=== PATIENT | male | born 1940 | race Caucasian/White ===

== ENCOUNTER → 2016-07-10 | Outpatient (CLI) | payer BC ==
[~2016-07-10] MED LIST: ATOR10TA88 PO; LOSA1TAB38 PO; PRED1SUS3 OPL
[2016-07-10 11:43] LABS: ALT/SGPT 37 U/L (12-78); AST/SGOT 23 U/L (15-37); BLOOD UREA NITROGEN 19 mg/dl (7-18); BUN/CREATININE RATIO 15.9 (10-20); CARBON DIOXIDE 27 mmol/L (21-32); CHLORIDE 110 mmol/L (98-107); GLUCOSE 86 mg/dl (70-99); POTASSIUM 4.2 mmol/L (3.5-5.1); SODIUM 144 mmol/L (136-145); TRIGLYCERIDES 104 mg/dl (0-150); VERY LOW DENSITY LIPOPROT CALC 21 mg/dl
[2016-07-10 11:45] LABS: ALB/GLOB RATIO 1.2 (0.9-2); ALKALINE PHOSPHATASE 80 U/L (45-117); CHOLESTEROL 168 mg/dl (0-200); CHOLESTEROL/HDL RATIO 2.8; HDL CHOLESTEROL 61 mg/dl; LDL CHOLESTEROL CALCULATED 86 mg/dl
== END | disposition home or self-care (01) ==
LOC: C.LABBC 08:28
PROVIDERS: ATTEND Internal Medicine Geriatric Medicine
DX: I10 Essential (primary) hypertension (principal); E78.5 Hyperlipidemia, unspecified

== ENCOUNTER → 2017-03-07 | Outpatient (CLI) | payer BC ==
--- NOTE | 2017-03-07 08:44 | DIAGNOSTIC IMAGING REPORT ---
CHEST 2 VIEWS ROUTINE HISTORY: 76 years-old Male R05 [id number] acute cough for 5 months. COMPARISON: Radiograph 10/17/2011 TECHNIQUE: Frontal and lateral views of the chest FINDINGS: Cardiomediastinal and hilar silhouettes are within normal limits. There is atherosclerosis of the aorta. No pneumothorax, pleural effusion, focal airspace consolidation or overt pulmonary edema. There is mild convex right curvature of the midthoracic spine. Multilevel degenerative changes of the spine are noted. IMPRESSION: No acute cardiopulmonary process. The above report was generated using voice recognition software. It may contain grammatical, syntax or spelling errors. Electronically signed by: Jose Omalley M.D. 03/07/2017 8:43 AM Dictated Date/Time: 03/07/2017 8:40 AM
[2017-03-07 11:32] LABS: ALT/SGPT 31 U/L (12-78); AST/SGOT 21 U/L (15-37); BLOOD UREA NITROGEN 21 mg/dl (7-18); BUN/CREATININE RATIO 18.4 (10-20); CARBON DIOXIDE 27 mmol/L (21-32); CHLORIDE 110 mmol/L (98-107); CREATININE 1.17 mg/dl (0.60-1.40); GLUCOSE 106 mg/dl (70-99); POTASSIUM 4.4 mmol/L (3.5-5.1); SODIUM 142 mmol/L (136-145)
[2017-03-07 11:43] LABS: ALKALINE PHOSPHATASE 78 U/L (45-117); CHOLESTEROL 158 mg/dl (0-200); CHOLESTEROL/HDL RATIO 2.5; HDL CHOLESTEROL 63 mg/dl; LDL CHOLESTEROL CALCULATED 82 mg/dl; TRIGLYCERIDES 66 mg/dl (0-150); VERY LOW DENSITY LIPOPROT CALC 13 mg/dl
== END | disposition home or self-care (01) ==
LOC: C.RADBC 08:09
PROVIDERS: ATTEND Internal Medicine Geriatric Medicine
DX: I10 Essential (primary) hypertension (principal); E78.5 Hyperlipidemia, unspecified; R05 Cough

== ENCOUNTER → 2017-03-28 | Outpatient (CLI) | payer BC ==
[~2017-03-28] MED LIST changes: +ATOR10TA82 PO; -ATOR10TA88 PO
[2017-04-01 01:29] LABS: LYME DNA PCR CSF OR SYNOVIAL Not detected (Not Detected); LYME DNA SOURCE Synovial Fluid
== END | disposition home or self-care (01) ==
LOC: C.LABSPEC 13:41
PROVIDERS: ATTEND Physician Assistant Medical
DX: M70.50 Other bursitis of knee, unspecified knee (principal)

== ENCOUNTER → 2017-04-30 | Outpatient (CLI) | payer BC | END | disposition home or self-care (01) | LOC: C.LABSPEC 13:15 | PROVIDERS: ATTEND Physician Assistant Medical | DX: M70.50 Other bursitis of knee, unspecified knee (principal) ==

== ENCOUNTER → 2017-09-20 | Outpatient (CLI) | payer BC ==
--- NOTE | 2017-09-20 13:55 | DIAGNOSTIC IMAGING REPORT ---
L VENOUS DOPP LOWER EXT UNILAT CLINICAL HISTORY: M79.89 Left leg swelling pain. Edema. TECHNIQUE: Venous Doppler COMPARISON STUDY: None FINDINGS: Study is negative for deep venous thrombosis. All major deep venous structures are intact. Soft tissues of the left calf demonstrate a linear 11 x 2 cm complex fluid tissue collection suggestive of hematoma. IMPRESSION: 1. No evidence for deep venous thrombosis. 2. Linear hematoma of the proximal to mid calf. The above report was generated using voice recognition software. It may contain grammatical, syntax or spelling errors. Electronically signed by: Gera Murcia M.D. 09/20/2017 1:53 PM Dictated Date/Time: 09/20/2017 1:51 PM
== END | disposition home or self-care (01) ==
LOC: C.ULTRBC 13:14
PROVIDERS: ATTEND Family Medicine Adult Medicine
DX: M79.89 Other specified soft tissue disorders (principal); S80.12XA Contusion of left lower leg, initial encounter; X58.XXXA Exposure to other specified factors, initial encounter

== ENCOUNTER 2023-12-30 18:15 | Inpatient (IN) ==
--- NOTE | 2023-12-30 18:37 | Emergency Department Note ---
Impression & Plan COVID, Left lower lobe pneumonia, Hypoxia ED Provider Note Name: BO WILCOX Age: 83 Sex: Male Arrives Via: Walk-In Informant: Patient and his ED Provider: Thierno Sainz MD Chief Complaint: Illness Impression: As per impressions above Medical Decision Making: Pleasant 83-year-old gentleman with about 5 days of symptoms. Upper respiratory symptoms primarily cough associated with congestion, shortness of breath, weakness, fatigue. Patient is hypoxic and febrile on arrival. He is not hypotensive. Laboratory workup is mostly unremarkable without elevated lactate or significantly elevated procalcitonin. Chest x-ray with left lower lobe pneumonia. In the setting of pneumonia hypoxia fever blood culture was obtained. Single blood culture set obtained due to national shortage. Patient was given 1 L normal saline bolus as he does appear a bit dehydrated on initial examination. Remained with good blood pressure throughout he is not septic shock. His COVID test is positive. Further fluid resuscitation is not indicated at this time secondary to no hypotension/lactic acidosis, concern for questionable congestion on chest x-ray as well as his COVID-positive status. Patient was given some cefepime and azithromycin for presumed secondary pneumonia. He is not a high risk aspiration patient. He was given Decadron for hypoxia and a COVID-positive patient. No concerns for PE or dissection nor ACS at this time. Triage/Nursing Notes reviewed by Me Differential:Pneumonia, pneumothorax, COPD, CHF, infections, cardiac ischemia, pulmonary embolism, musculoskeletal, gastrointestinal, as well as other pathologies. Vital Signs: reviewed and remarkable for febrile, hypoxia Interventions: Decadron 10mg IV, NSS bolus 1 L IV, Cefepime 2gm IV, Azithromycin 500mg IV Labs:ED labs Reviewed by me and remarkable for + covid Imagin view chest x-ray as per my interpretation reveals a left lower lobe infiltrate EKG:As per my interpretation. Indication weakness and shortness of breath. Normal sinus rhythm at 91 bpm with a QTc of 460. There is no ectopy nor ischemia. There are no previous EKGs for comparison. Cardiac/Tele Monitoring: Cardiac Monitoring: An Order was placed for continuous cardiac monitoring. The monitor shows a rate of 90 with a normal sinus rhythm. Consults:Dr Lozano of [facility] Hospitalist -I discussed the case with him and they will evaluate him for hospitalization. Plan: Disposition:Hospitalization. Condition: Good History of Present Illness: 83-year-old male arrives for evaluation of illness. Patient notes he start developing cough cold type symptoms about 5 days ago. Rapidly progressed over few days to shortness of breath, congestion, weakness, fatigue. Notes he has not had been having any chest pain or shortness of breath with exertion specifically other than just feeling overall fatigued and short of breath even at rest. Due to continued worsening arrives to the ER for further evaluation. Notes a cough without productive sputum. Denies any leg swelling, chest pain, palpitations, abdominal pain, urinary symptoms, diarrhea, headaches, sore throat, other concerning signs or symptoms. Patient's been taking Mucinex without any improvement. Denies any history of respiratory issues, hospitalizations for infections, pneumonia. No known sick contacts Past Medical History: Dyslipidemia, hypertension, enlarged prostate Home Medications: Losartan, hydrochlorothiazide, atorvastatin Allergies: IV dye, lisinopril Vitals:Blood Pressure: 128/70, Pulse 91, RR 26, T 38.3C, O2 88% on RA Physical Exam: GENERAL: Patient is unwell appearing and in mild distress. Warm to touch RESPIRATORY: Mild dyspnea/tachypnea mildly junky lung sounds throughout without wheeze appreciated. CARDIOVASCULAR: Regular rate and rhythm.No murmur appreciated. GASTROINTESTINAL: Abdomen soft, non-tender, no peritonitis. EXTREMITIES: Normal motion all extremities, no cyanosis, no edema. NEUROLOGIC: Alert and oriented. No focal neurologic deficits appreciated SKIN: No rash, no jaundice, no diaphoresis. 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 Dyslipidemia Hypertension History of Mohs micrographic surgery for skin cancer Surgical History History of eyelid surgery History of colonoscopy History of cataract surgery Family History Mother Hypertension Stroke Father Prostate cancer Denies family history of Ovarian cancer Diabetes Myocardial infarction Breast cancer Lung cancer Colorectal cancer Social History Smoking Status: Never smoker Second Hand Exposure: No; Do You Dip or Chew Tobacco: No; Hx Alcohol Use: No Hx Substance Use: No Preferred Language: Chinese Communication Ability: Effective Visual Impairment: Limited Hearing Ability: Normal marital status: Current Living Situation: Spouse current occupational status: retired How many Children do You have: 0 Feels Safe at Home: Yes Childhood Exposure to Second-Hand Smoke: No Diet: regular caffeine: Yes Dental Care, Regularly: Yes Physical Activity Frequency: Daily Seatbelt Use: always Sunscreen Use: Yes Do you think of yourself as: straight/heterosexual Assistive Devices: Glasses Allergies Allergies Allergy/AdvReac Type Severity Reaction Status Date / Time Iodinated Contrast Media Allergy Unknown HIVES--CONTRAST Verified 04/30/23 08:43 DYE lisinopril Allergy Unknown Verified 04/30/23 08:43 Home Meds Home Medications Medication Instructions Recorded Confirmed acetaminophen 500 mg tablet 1,000 mg PO Q6H PRN Pain 05/24/20 12/30/23 (Tylenol Extra Strength) Previous Rx's Medication Instructions Recorded hydrochlorothiazide 12.5 mg tablet 12.5 mg PO DAILY #90 tabs 04/30/23 losartan 100 mg tablet (Cozaar) 100 mg PO DAILY #90 tabs 06/03/23 atorvastatin 10 mg tablet (Lipitor) 10 mg PO DAILY #90 tabs 10/02/23 Results & Data (ED) Vital Signs Vital Signs - 24 hr 12/30/23 18:16 12/30/23 18:37 12/30/23 18:45 Temperature 37.1 C 38.3 C H Temperature Source Oral Oral Pulse Rate 97 H 84 Pulse Rate [Left Apical] 91 H Respiratory Rate 22 26 H Respiratory Effort / Characteristics Non-Labored Spontaneous Spontaneous Short of Breath Respiratory Depth Normal Normal Respiratory Pattern Regular Regular Blood Pressure 142/73 H Blood Pressure [Right Arm] 128/70 Blood Pressure Mean 96 Blood Pressure Mean [Right Arm] 89 Pulse Oximetry 88 L 94 Oxygen Delivery Method Room Air Nasal Cannula Oxygen Flow Rate 3 Sepsis Recent Fever Within 48 Hours Yes Sepsis New/Unexplained Change in Mental Status N/A Sepsis Action Taken by Nursing No Action Required 12/30/23 19:00 12/30/23 19:03 12/30/23 19:30 Temperature Temperature Source Pulse Rate 83 76 Pulse Rate [Left Apical] Respiratory Rate 26 H 23 Respiratory Effort / Characteristics Respiratory Depth Respiratory Pattern Blood Pressure 124/69 126/67 Blood Pressure [Right Arm] Blood Pressure Mean 82 86 Blood Pressure Mean [Right Arm] Pulse Oximetry 96 95 Oxygen Delivery Method Nasal Cannula Nasal Cannula Oxygen Flow Rate 3 3 Sepsis Recent Fever Within 48 Hours Sepsis New/Unexplained Change in Mental Status Sepsis Action Taken by Nursing 12/30/23 19:54 12/30/23 20:00 12/30/23 20:05 Temperature 37.4 C Temperature Source Oral Pulse Rate 73 Pulse Rate [Left Apical] Respiratory Rate 26 H Respiratory Effort / Characteristics Respiratory Depth Respiratory Pattern Blood Pressure 136/72 Blood Pressure [Right Arm] Blood Pressure Mean 97 Blood Pressure Mean [Right Arm] Pulse Oximetry 97 Oxygen Delivery Method Nasal Cannula Oxygen Flow Rate 3 Sepsis Recent Fever Within 48 Hours Sepsis New/Unexplained Change in Mental Status Sepsis Action Taken by Nursing 12/30/23 20:11 12/30/23 20:20 12/30/23 20:26 Temperature Temperature Source Pulse Rate 71 81 74 Pulse Rate [Left Apical] Respiratory Rate 22 25 H 23 Respiratory Effort / Characteristics Respiratory Depth Respiratory Pattern Blood Pressure Blood Pressure [Right Arm] Blood Pressure Mean Blood Pressure Mean [Right Arm] Pulse Oximetry 97 96 95 Oxygen Delivery Method Nasal Cannula Nasal Cannula Nasal Cannula Oxygen Flow Rate 3 3 3 Sepsis Recent Fever Within 48 Hours Sepsis New/Unexplained Change in Mental Status Sepsis Action Taken by Nursing 12/30/23 21:00 12/30/23 21:11 12/30/23 21:20 Temperature Temperature Source Pulse Rate 74 74 Pulse Rate [Left Apical] Respiratory Rate 22 26 H Respiratory Effort / Characteristics Respiratory Depth Respiratory Pattern Blood Pressure 132/78 Blood Pressure [Right Arm] Blood Pressure Mean 88 Blood Pressure Mean [Right Arm] Pulse Oximetry 93 93 Oxygen Delivery Method Nasal Cannula Nasal Cannula Oxygen Flow Rate 3 3 Sepsis Recent Fever Within 48 Hours Sepsis New/Unexplained Change in Mental Status Sepsis Action Taken by Nursing Laboratory Data 12/30/23 18:50 12/30/23 18:50 Lab Results 12/30/23 12/30/23 12/30/23 Range/Units 18:41 18:50 19:46 WBC 9.33 (4.8-10.8) K/ul RBC 3.84 L (4.70-6.10) M/uL Hgb 12.2 L (14.0-18.0) g/dl Hct 35.3 L (42.0-52.0) % MCV 91.9 (80.0-100.0) fL MCH 31.8 (25.0-34.0) pg MCHC 34.6 (32.0-36.0) g/dL RDW Std Deviation 42.0 (36.4-46.3) fL RDW Coeff of [place] 12.5 (11.5-14.5) % Plt Count 198 (130-400) K/uL MPV 8.8 L (9.4-12.4) fL Immature Gran % (Auto) 0.3 % Neut % (Auto) 86.8 % Lymph % (Auto) 4.0 % [place] % (Auto) 8.6 % Eos % (Auto) 0.1 % Baso % (Auto) 0.2 % Neut # (Auto) 8.10 H (1.40-6.50) K/uL Lymph # (Auto) 0.37 L (1.20-3.40) K/uL [place] # (Auto) 0.80 H (0.11-0.59) K/uL Eos # (Auto) 0.01 (0.00-0.50) K/uL Baso # (Auto) 0.02 (0.00-0.20) K/uL Immature Gran # (Auto) 0.03 (0.01-0.20) K/uL Sodium 133 L (136-145) mmol/L Potassium 3.8 (3.5-5.1) mmol/L Chloride 100 (98-107) mmol/L Carbon Dioxide 24 (21-32) mmol/L Anion Gap 9 (3-11) BUN 20 (6-23) mg/dl Creatinine 1.26 (0.6-1.4) mg/dl Est Cr Clr Drug Dosing 44.6 ml/min Est GFR ( Amer) 60.3 ml/min Est GFR (Non-Af Amer) 52.0 ml/min BUN/Creatinine Ratio 15.9 (10-20) Glucose 134 H (70-99(Fasting)) mg/dl Lactate 0.8 (0.4-2.0) mmol/L Calcium 8.9 (8.6-10.3) mg/dl Magnesium 1.8 (1.7-2.4) mg/dl Total Bilirubin 0.6 (0.2-1.0) mg/dl Direct Bilirubin TNP AST 29 (13-39) U/L ALT 20 (7-52) U/L Alkaline Phosphatase 52 (34-104) U/L Troponin I High Sens 7.9 (0-20) pg/ml Total Protein 6.6 (6.0-8.3) gm/dl Albumin 3.6 (3.4-5.0) gm/dl Procalcitonin Cancelled 0.25 Urine Color Urine Appearance (Clear) Urine pH (4.5-7.5) Ur Specific [place] (1.000-1.030) Urine Protein (Negative) Urine Glucose (UA) (Negative) Urine Ketones (Negative) Urine Blood (Negative) Urine Nitrite (Negative) Urine Bilirubin (Negative) Urine Urobilinogen (Negative) Ur Leukocyte Esterase (Negative) Urine WBC (Auto) (0-5) /hpf Urine RBC (Auto) (0-2) /hpf U Hyaline Cast (Auto) (0-2) /lpf U Epithel Cells (Auto) (0-2) /hpf Urine Bacteria (Auto) (None Seen) SARS-CoV-2 (PCR) POSITIVE (Negative) Influenza Type A (PCR) Negative (Neg) Influenza Type B (PCR) Negative (Neg) RSV (RT-PCR) Negative (Neg) 12/30/23 Range/Units 20:45 WBC (4.8-10.8) K/ul RBC (4.70-6.10) M/uL Hgb (14.0-18.0) g/dl Hct (42.0-52.0) % MCV (80.0-100.0) fL MCH (25.0-34.0) pg MCHC (32.0-36.0) g/dL RDW Std Deviation (36.4-46.3) fL RDW Coeff of [place] (11.5-14.5) % Plt Count (130-400) K/uL MPV (9.4-12.4) fL Immature Gran % (Auto) % Neut % (Auto) % Lymph % (Auto) % [place] % (Auto) % Eos % (Auto) % Baso % (Auto) % Neut # (Auto) (1.40-6.50) K/uL Lymph # (Auto) (1.20-3.40) K/uL [place] # (Auto) (0.11-0.59) K/uL Eos # (Auto) (0.00-0.50) K/uL Baso # (Auto) (0.00-0.20) K/uL Immature Gran # (Auto) (0.01-0.20) K/uL Sodium (136-145) mmol/L Potassium (3.5-5.1) mmol/L Chloride (98-107) mmol/L Carbon Dioxide (21-32) mmol/L Anion Gap (3-11) BUN (6-23) mg/dl Creatinine (0.6-1.4) mg/dl Est Cr Clr Drug Dosing ml/min Est GFR ( Amer) ml/min Est GFR (Non-Af Amer) ml/min BUN/Creatinine Ratio (10-20) Glucose (70-99(Fasting)) mg/dl Lactate (0.4-2.0) mmol/L Calcium (8.6-10.3) mg/dl Magnesium (1.7-2.4) mg/dl Total Bilirubin (0.2-1.0) mg/dl Direct Bilirubin AST (13-39) U/L ALT (7-52) U/L Alkaline Phosphatase (34-104) U/L Troponin I High Sens (0-20) pg/ml Total Protein (6.0-8.3) gm/dl Albumin (3.4-5.0) gm/dl Procalcitonin Urine Color Yellow Urine Appearance Cloudy A (Clear) Urine pH 5.5 (4.5-7.5) Ur Specific [place] 1.017 (1.000-1.030) Urine Protein 2+ H (Negative) Urine Glucose (UA) Negative (Negative) Urine Ketones Trace H (Negative) Urine Blood 1+ H (Negative) Urine Nitrite Negative (Negative) Urine Bilirubin Negative (Negative) Urine Urobilinogen Negative (Negative) Ur Leukocyte Esterase Negative (Negative) Urine WBC (Auto) 0-5 (0-5) /hpf Urine RBC (Auto) 0-2 (0-2) /hpf U Hyaline Cast (Auto) >20 H (0-2) /lpf U Epithel Cells (Auto) 0-2 (0-2) /hpf Urine Bacteria (Auto) None Seen (None Seen) SARS-CoV-2 (PCR) (Negative) Influenza Type A (PCR) (Neg) Influenza Type B (PCR) (Neg) RSV (RT-PCR) (Neg) Administered Medications Discontinued Medications Dexamethasone Sodium Phosphate (DexamethasonePf 10 Mg/Ml Vial) 10 mg IV NOW ONE Stop: 12/30/23 20:06 Last Admin: 12/30/23 20:40 Dose: 10 mg Documented By: UMANG Sodium Chloride (Nss) 1,000 mls @ 999 mls/hr IV .Q1H1M TAMARA Stop: 12/30/23 19:45 Last Infusion: 12/30/23 20:50 Dose: Infused Documented By: [facility] Admin: 12/30/23 18:57 Dose: 999 mls/hr Documented By: UMANG Acetaminophen (Ofirmev) 1,000 mg in 100 mls @ 400 mls/hr IV NOW STA Stop: 12/30/23 18:51 Last Infusion: 12/30/23 19:57 Dose: Infused Documented By: [facility] Admin: 12/30/23 18:57 Dose: 400 mls/hr Documented By: MALVIN Cefepime HCl (Maxipime) 2,000 mg in 20 mls @ 5 mls/min IV NOW STA; Protocol Stop: 12/30/23 19:45 Last Admin: 12/30/23 19:53 Dose: 5 mls/min Documented By: UMANG Azithromycin 500 mg/ Dextrose 255 mls @ 127.5 mls/hr IV NOW STA Stop: 12/30/23 21:41 Last Admin: 12/30/23 20:40 Dose: 127.5 mls/hr Documented By: [facility] Discharge Plan Visit Data Chief Complaint: Illness Stated Complaint: SOB, COUGHING, FEVER ED Provider: Thierno Sainz Discharge Problem: COVID, Left lower lobe pneumonia, Hypoxia Patient Disposition: Admitted As Inpatient Discharge Instructions Interventions: ED Discharge Assessment Last Done: 12/30/23 21:44 Forms Stand Alone Forms: My [facility] Prescriptions Prescriptions: No Action losartan [Cozaar] 100 mg tablet 100 mg PO DAILY Qty: 90 3RF atorvastatin [Lipitor] 10 mg tablet 10 mg PO DAILY Qty: 90 3RF hydrochlorothiazide 12.5 mg tablet 12.5 mg PO DAILY Qty: 90 3RF acetaminophen [Tylenol Extra Strength] 500 mg Tablet 1,000 mg PO Q6H PRN (Reason: Pain) Referrals Referrals: Jacob Godfrey DO [Primary Care Provider] - Discharge Problem: Left lower lobe pneumonia Qualifiers: Pneumonia type: due to unspecified organism Qualified Code(s): J18.9 - Pneumonia, unspecified organism
[2023-12-30] MEDS: ACETAMINOPHEN 1,000 MG/100 ML VIAL IV STA (18:57)
[2023-12-30] MEDS: SODIUM CHLORIDE 0.9% 1,000 ML IV SCH (18:57)
[2023-12-30 19:09] LABS: Basophils # (auto) 0.02 K/uL (0.00-0.20); Basophils % (auto) 0.2 %; Eosinophils # (auto) 0.01 K/uL (0.00-0.50); Eosinophils % (auto) 0.1 %; Hematocrit (blood only) 35.3 % (42.0-52.0); Hemoglobin 12.2 g/dl (14.0-18.0); Immature Granulocytes # (auto) 0.03 K/uL (0.01-0.20); Immature Granulocytes % (auto) 0.3 %; Lymphocytes # (auto) 0.37 K/uL (1.20-3.40); Mean Corpuscular Hemoglobin 31.8 pg (25.0-34.0); Mean Corpuscular Hgb Conc 34.6 g/dL (32.0-36.0); Mean Corpuscular Volume 91.9 fL (80.0-100.0); Mean Platelet Volume 8.8 fL (9.4-12.4); Monocytes % (auto) 8.6 %; Neutrophils % (auto) 86.8 %; Platelet Count 198 K/uL (130-400); RDW Coefficient of Variation 12.5 % (11.5-14.5); Red Blood Count 3.84 M/uL (4.70-6.10); White Blood Count 9.33 K/ul (4.8-10.8)
[2023-12-30 19:33] LABS: Alanine Aminotransferase 20 U/L (7-52); Albumin Level 3.6 gm/dl (3.4-5.0); Alkaline Phosphatase 52 U/L (34-104); Anion Gap 9 (3-11); Aspartate Aminotransferase 29 U/L (13-39); BUN Creatinine Ratio 15.9 (10-20); Bilirubin,Total 0.6 mg/dl (0.2-1.0); Blood Urea Nitrogen 20 mg/dl (6-23); Calcium 8.9 mg/dl (8.6-10.3); Carbon Dioxide 24 mmol/L (21-32); Chloride 100 mmol/L (98-107); Creatinine Clr Calc Pharmacy 44.6 ml/min; Est GFR (African American) 60.3 ml/min; Glucose 134 mg/dl (70-99(Fasting)); Magnesium 1.8 mg/dl (1.7-2.4); Potassium 3.8 mmol/L (3.5-5.1); Sodium 133 mmol/L (136-145); Total Protein 6.6 gm/dl (6.0-8.3)
[2023-12-30 19:40] LABS: Troponin I High Sensitivity 7.9 pg/ml (0-20)
[2023-12-30 19:46] LABS: Influenza A virus by PCR Negative (Neg); Influenza B virus by PCR Negative (Neg); RSV by PCR Negative (Neg); SARS CoV2 RNA(COVID-19) Ceph POSITIVE (Negative)
[2023-12-30] MEDS: CEFEPIME 2,000 MG/20 ML VIAL IV STA (19:53)
--- NOTE | 2023-12-30 20:11 | History & Physical Report ---
Date of Service December 30, 2023 Assessment & Plan (1) Left lower lobe pneumonia: Plan: Productive cough, SAMANIEGO, and fever x 1 week CXR on arrival revealed possible left lower lobe / lingular PNA ? Mucous plugging in the right hilar region Patient denies recent vomiting/aspiration, but does endorse significant coughing when he eats No leukocytosis; afebrile on arrival; procalcitonin WNL Azithromycin 500 mg IV q24h Continue cefepime 2000 mg IV q8h for now to cover potential ASA PNA Guaifenesin 1200 mg p.o. q12h Acetaminophen as needed for pain/fever AM CBC, BMP, mag (2) Acute hypoxic respiratory failure: Plan: Patient's SpO2 was 88% on RA on arrival Not on supplemental oxygen at baseline Supplement oxygen as needed to maintain SpO2 >94% Continuous pulse oximetry (3) COVID: Plan: Covid (+) on arrival Isolation precautions Supportive care Decadron 6 mg IV QAM Given timeline of symptoms, will defer remdesivir Incentive parameter, flutter valve (4) Hypertension: Plan: Continue losartan, HCTZ (5) Dyslipidemia: Plan: Continue atorvastatin Plan Disposition: Admit to [facility] telemetry Full code Regular diet VTE PPx: Lovenox 40 mg SQ q24h History of Present Illness Chief Complaint: SOB, productive cough Primary Care Provider: DO Ion Gonzalez is a pleasant 83-year-old male with PMH of dyslipidemia, HTN, and enlarged prostate. He presented on 12/29 for productive cough, dyspnea on exertion, and low-grade fevers x 1 week. Patient reports he is experiencing SOB with exertion, but not at rest. He is not on supple oxygen at home. He has been taking Mucinex and cough drops for his productive cough. He does have a history of COVID infection in 2019. He has had vaccination against COVID, but not boosters. Per home parameter, he has been running low-grade fevers around 99 F. He denies being around anybody sick recently, and reports he mainly only goes out when he is going to [employer], [employer], and [employer]. He denies smoking, tobacco use, and alcohol use. Patient's SpO2 was 95% on 3L NC; vitals otherwise stable at time of admission. ED course: Azithromycin 500 mg IV Cefepime 2000 mg IV Decadron 10 mg IV Acetaminophen 1000 mg IV NSS 1000 mL IV ROS: Patient endorses intermittent low-grade fevers (at 99F), SAMANIEGO, and productive cough. Patient denies chills, night-sweats, dizziness, lightheadedness, ROGERS, congestion, chest pain, SOB at rest, pleuritic CP, abdominal pain, or N/V/D. Allergies Allergy/AdvReac Type Severity Reaction Status Date / Time Iodinated Contrast Media Allergy Unknown HIVES--CONTRAST Verified 04/30/23 08:43 DYE lisinopril Allergy Unknown Verified 04/30/23 08:43 Home Medications Medication Instructions Recorded Confirmed Type acetaminophen 500 mg tablet 1,000 mg PO Q6H PRN Pain 05/24/20 12/30/23 History (Tylenol Extra Strength) hydrochlorothiazide 12.5 mg tablet 12.5 mg PO DAILY #90 tabs 04/30/23 12/30/23 Rx losartan 100 mg tablet (Cozaar) 100 mg PO DAILY #90 tabs 06/03/23 12/30/23 Rx atorvastatin 10 mg tablet (Lipitor) 10 mg PO DAILY #90 tabs 10/02/23 12/30/23 Rx Past Med/Surg History Problem List (Updated 12/30/23 @ 22:13 by Thierno Sainz MD) Hypoxia (Acute) Acute hypoxic respiratory failure COVID (Acute) Left lower lobe pneumonia (Acute) Constipation Enlarged prostate without lower urinary tract symptoms (luts) (Acute) Hypertension Dyslipidemia Medical History Diverticulosis 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 Dyslipidemia Hypertension History of Mohs micrographic surgery for skin cancer Surgical History History of eyelid surgery History of colonoscopy History of cataract surgery Family History Mother Hypertension Stroke Father Prostate cancer Denies family history of Ovarian cancer Diabetes Myocardial infarction Breast cancer Lung cancer Colorectal cancer Social History Smoking Status: Never smoker Second Hand Exposure: No; Do You Dip or Chew Tobacco: No; Hx Alcohol Use: No Hx Substance Use: No Preferred Language: French Communication Ability: Effective Visual Impairment: Limited Hearing Ability: Normal Traffic Analysis Technician Required: No Beliefs That Will Affect Care: None marital status: Current Living Situation: Spouse current occupational status: retired How many Children do You have: 0 Other Information That Helps Us Care for You: No Feels Safe at Home: Yes Safety Concerns: Feels Safe At This Time Childhood Exposure to Second-Hand Smoke: No Diet: regular caffeine: Yes Dental Care, Regularly: Yes Physical Activity Frequency: Daily Seatbelt Use: always Sunscreen Use: Yes Do you think of yourself as: straight/heterosexual Assistive Devices: Glasses Review of Systems Review of Systems: See HPI above Physical Exam Physical Exam: General: no acute distress; pleasant affect; non-toxic appearing; well- nourished; cooperative; SpO2 96% on 3L NC HEENT: normocephalic, atraumatic; no scleral icterus; PERRLAt; vision and hearing grossly intact Neck: supple; no lymphadenopathy; trachea midline Skin: warm, dry without signs of tenting; no cyanosis; no rashes, bruising, lesions, or erythema noted CV: chest wall NTP; RRR; S1/S2 normal; no murmurs/rubs/gallops; pulses intact and symmetric at radial, DP, and PT Lungs: Mild respiratory distress; symmetrical chest wall expansion; bibasilar crackles auscultated in the lower lung villanueva bilaterally; deep breaths exacerbates coughing ABD: Soft, NTP; BS present; no rebound/guarding; no distention MSK: no tics or fasciculations; no edema noted in the LEs b/l, nonerythematous Neuro: A&Ox3; normal mood and affect; fluent speech; no focal deficits; sensation grossly intact in the LEs b/l Trialed patient on room air and patient's oxygen dropped to 90% Results & Data Results & Data Vital Signs (Past 12 Hours) Vital Signs Temp Pulse Pulse Resp BP BP Pulse Ox 12/30/23 19:54 37.4 C 12/30/23 19:30 76 23 126/67 95 12/30/23 19:03 83 26 H 96 12/30/23 19:00 124/69 12/30/23 18:45 84 12/30/23 18:37 38.3 C H 91 H 26 H 128/70 94 12/30/23 18:16 37.1 C 97 H 22 142/73 H 88 L O2 Del Method O2 Flow Rate 12/30/23 19:54 12/30/23 19:30 Nasal Cannula 3 12/30/23 19:03 Nasal Cannula 3 12/30/23 19:00 12/30/23 18:45 12/30/23 18:37 Nasal Cannula 3 12/30/23 18:16 Room Air Laboratory Results Abnormal lab results 12/30/23 Range/Units 18:50 RBC 3.84 L (4.70-6.10) M/uL Hgb 12.2 L (14.0-18.0) g/dl Hct 35.3 L (42.0-52.0) % MPV 8.8 L (9.4-12.4) fL Neut # (Auto) 8.10 H (1.40-6.50) K/uL Lymph # (Auto) 0.37 L (1.20-3.40) K/uL Jefferson # (Auto) 0.80 H (0.11-0.59) K/uL Sodium 133 L (136-145) mmol/L Glucose 134 H (70-99(Fasting)) mg/dl ECG Additional Comments: EKG ordered, pending Code Status & VTE Plan Code Status Full code VTE Prophylaxis Plan VTE Prophylaxis will be ordered: Yes Supervising Physician Co-Signing Physician Notes Attending addendum: I have physically seen this patient, have supervised the MECHE's activities, and agree with the H&P unless as otherwise noted. Assessment and Plan: Acute respiratory failure with hypoxia left lower lobe pneumonia/COVID-positive- Chest x-ray with left lingular and left lower lobe pneumonia, with differential including but not limited to aspiration, community-acquired, and viral/COVID Given dexamethasone 10 mg IV in the ED, and will continue 6 mg IV every morning Azithromycin 500 mg IV every 24 hours Cefepime 2 g IV every 8 hours Guaifenesin extended release 1200 mg p.o. every 12 hours Acetaminophen 650 mg by mouth every 6 hours as needed for mild pain or fever Albuterol HFA 2 puffs every 6 hours as needed Target pulse ox 92-94% Follow serial CBC with differential, BMP and magnesium level Follow sputum Gram stain and cultureVersus MRSA swab COVID precautions Hypertension- Continue losartan Hold HCTZ PG Care Time/CCT Total # of Minutes Spent Total Time Spent with Patient: Total time spent is greater than 50% in coordination of care (as documented) at patient's floor/unit and/or counseling patient: Coding [place] [address] INT INP/OBS CARE 3/75MIN Patient Type Established Medical Decision Making High Complexity Diagnoses Left lower lobe pneumonia J18.9 Acute hypoxic respiratory failure J96.01 COVID U07.1 Hypertension I10 Dyslipidemia E78.5
[2023-12-30] MEDS: AZITHROMYCIN 500 MG in DEXTROSE 5% 250 ML IV STA (20:40)
[2023-12-30] MEDS: dexAMETHasone**PF** 10 MG/ML VIAL IV ONE (20:40)
[2023-12-30 21:29] LABS: Appearance Urine Cloudy (Clear); Bacteria Urine Automated None Seen (None Seen); Bilirubin Urine Negative (Negative); Blood Urine 1+ (Negative); Cast Urine Automated >20 /lpf (0-2); Color Urine Yellow; Epithelial Cell Urine Auto 0-2 /hpf (0-2); Glucose Urine UA Negative (Negative); Ketones Urine Trace (Negative); Leukocyte Esterase Urine Negative (Negative); Nitrite Urine Negative (Negative); Protein Urine 2+ (Negative); RBC Urine Automated 0-2 /hpf (0-2); Specific Gravity Urine 1.017 (1.000-1.030); Urobilinogen Urine Negative (Negative); WBC Urine Automated 0-5 /hpf (0-5); pH Urine 5.5 (4.5-7.5)
[2023-12-30] MEDS ORDERED: ACETAMINOPHEN 325 MG TAB PO PRN (22:29)
[2023-12-30] MEDS: guaiFENesin 600 MG TABCR PO SCH (23:07)
--- OUTSIDE RECORDS SUMMARY | 2023-12-31 05:52 | External Medical Summary | Continuity of Care Document ---
Author Name Unknown Organization [facility] [address] [id number] Care Team Providers Care Occupational Health Nurse Manager Name Role Phone Celeste Pichardo Primary Care Physician [phone] Encounter [facility] [id number] Date(s): 10/21/23 - 10/21/23 [facility] [address] [facility] [place], [place] [id number] Encounter Diagnosis History of SCC (squamous cell carcinoma) of skin(Discharge Diagnosis) - 10/21/23 Actinic keratosis(Discharge Diagnosis) - 10/21/23 Epidermoid cyst(Discharge Diagnosis) - 10/21/23 Seborrheic keratoses(Discharge Diagnosis) - 10/21/23 Encounter for follow-up examination after completed treatment for cancer (Discharge Diagnosis) - 10/21/23 Discharge Disposition: Home or Self Care Attending Physician: MD Ivory Sara B Allergies, Adverse Reactions, Alerts No Known Allergies Assessment and Plan Extracted from: Title:Dermatology Office Visit Note Author:Susy braun MD, Sara B Date:10/21/23 1.History of SCC (squamous cell carcinoma) of skin see #5 2.Actinic keratosis x10. Lesions treated with liquid nitrogen. Patient aware of possibility of infection, hypo or hyperpigmentation or scarring and did elect to proceed. They should inform me of any problems or recurrences post treatment. Care sheet given. 3.Epidermoid cyst Chronic, within normal limits, not bothering patient 4.Seborrheic keratoses Chronic, within normal limits, not bothering patient 5.Encounter for follow-up examination after completed treatment for cancer Warning signs of skin cancer were reviewed. Sun protection reviewed. Follow-up in 6 months, sooner for any changing or growing lesions or acute concerns. I also recommended monthly self skin exams Medications No Known Medications Mental Status 10/21/23 Barriers to Learning one year None evide nt Mandatory Health Literacy Documentation Yes Health Literacy Communication Barriers N ever Primary Language Romanian Problem List Condition Confirmation Course Effective Dates Status Health St atus Informant ACTINIC KERATOSIS Confirmed Active Actinic keratosis Confirmed 12/24/01 Active Benign essential HTN Confirmed Active Changing skin lesion Confirmed Active Eczema Confirmed Active Epidermoid cyst Confirmed Active Epidermal cyst Confirmed Active Encounter for follow-up examination after completed treatment for cancer Confirmed Active History of SCC (squamous cell carcinoma) of skin Confirmed Active High cholesterol Confirmed Active Inflamed seborrheic keratosis Confirmed Active Seborrheic keratoses Confirmed Active Sun-damaged skin Confirmed Active Squamous cell carcinoma of right hand Confirmed Active Squamous cell carcinoma of skin of chest Confirmed Active Diagnosis Diagnosis Type Effective Dates Health Status Clinical Service Informant Epidermoid cyst Discharge Diagnosis 10/21/23 History of SCC (squamous cell carcinoma) of skin Discharge Diagnosis 10/21/23 Encounter for follow-up examination after completed treatment for cancer Discharge Diagnosis 10/21/23 Actinic keratosis Discharge Diagnosis 10/21/23 Seborrheic keratoses Discharge Diagnosis 10/21/23 Procedures Procedure Date Related Diagnosis Body Site Status Shave biopsy and cauterization of skin 11/16/21 Completed Curettage and cauterization of skin lesion 1 08/16/21 Completed Electrodesiccation with curettage 2 01/12/19 Completed Shave biopsy and cauterization of skin 12/31/18 Completed Mohs surgery 3 08/27/18 Completed Mohs micrographic surgery 07/30/18 Completed Shave biopsy and cauterisati on of skin 4 07/02/18 Completed Shave biopsy and cauterization of skin 07/01/17 Completed Electrodesiccation with curettage 01/08/17 Completed Shave biopsy of skin 5 01/08/17 Co mpleted Shave biopsy of skin 07/11/16 Comp leted Electrodesiccation with curettage 12/06/15 Completed Shave biopsy of skin 11/24/15 Comp leted Shave biopsy and cauterizati on of skin 6 09/08/15 Completed Colonoscopy 2013 Completed excision of skin cancer C ompleted Shave biopsy Completed 1upper chest 2right dorsal hand SCC 3A- left muslim B- left cheek 4A.) Left muslim B.) Left lateral cheek C.) Right lateral cheek 5ED&C 6A) Right post neck B) Right forehead Social History Social History Type Response Smoking Status Never smoked cigaret torsten Sex Male Dermatology Outpatient Note * MD Cachorro, Agata Novak: PERFORM Event Display: Dermatology Outpt Note Authored Date: Chief Complaint skin check- no concerns History of Present Illness The patient is a pleasant 82-year-old male, I have known for a long time. Here for skin check today. Skin Ca Hx: He has a history of a moderately differentiated squamous cell in the right neck in the falltreated with Mohs, bowenoid SK treated with ED and C on the right scalp in spring, BCC removed by biopsy, right posterior neck in 2010. Also has a history of actinic keratoses and had Efudex in the winter. 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 Perineural invasion was not noted. These were all treated with Mohs in the spring. 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 Alert and oriented x3. Good mood. Skin examination completed of face, eyelids, scalp, hair, lips, ears, neck, chest, back, abdomen,upper and lower extremities bilaterally including hands, feet, fingers and toes, fingernails and toenails, pt declined buttocks and groin.Patient has significant actinic damage primarily on the face ears neck forearms and dorsal hands. His scalp is clearas he always wears a hat. No evidence of recurrent skin cancer in his scars are clear today. He has10 actinic keratoses on lateral ear rims temples cheeks and dorsal hands. He has a 1 cm freely movable subcutaneous nodule on the right upper back with a central black punctum consistent with a cyst. He has scattered seborrheic keratoses. Assessment/Plan 1.History of SCC (squamous cell carcinoma) of skin see #5 2.Actinic keratosis x10. Lesions treated with liquid nitrogen. Patient aware of possibility of infection, hypo or hyperpigmentation or scarring and did elect to proceed. They should inform me of any problemsor recurrences post treatment. Care sheet given. 3.Epidermoid cyst Chronic, within normal limits, not bothering patient 4.Seborrheic keratoses Chronic, within normal limits, not bothering patient 5.Encounter for follow-up examination after completed treatment for cancer Warning signs of skin cancer were reviewed. Sun protection reviewed. Follow-up in 6 months, sooner for any changing or growing lesions or acute concerns. 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 Procedure/Surgical History Shave biopsy and cauterization of skin| Service Date: 11/16/2021urettage and cauterization of skin lesion| Service Date: 08/16/2021Electrodesiccation with curettage| Service Date: 01/12/2019Shave biopsy and cauterization of skin| Service Date: 12/31/2018[facility] surgery| Service Date: 08/27/2018[facility] micrographic surgery| Service Date: 07/30/2018Shave biopsy and cauterisation of skin| Service Date: 07/02/2018Shave biopsy and cauterization of skin| Service Date: 07/01/2017Shave biopsy of skin| Service Date: 01/08/2017Electrodesiccation with curettage| Service Date: 01/08/2017Shave biopsy of skin| Service Date: 07/11/2016Electrodesiccation with curettage| Service Date: 12/06/2015Shave biopsy of skin| Service Date: 11/24/2015Shave biopsy and cauterization of skin| Service Date: 09/08/2015Colonoscopy| Service Date: 2013excision of skin cancerShave biopsy Allergies NKA Social History Smoking Status Never smoked cigarettes Electronic Signature on File Electronically Reviewed/Signed by: Agata Ivory MD Author Signature Dt/Tm:10/21/2023 01:34 PM Department of Dermatology [facility] Patient Care team information Care Team Personnel Name: MD Cachorro, Agata Novak Position: Physician - Derm Member Role: Lifetime Relationship Address: Address: [address] [place] [address] [address] [place] [address] [place] Name: RUDY Pichardo Allison Irene Position: Referring Member Role: Primary Care Provider Address: Address: [address] [place] [address] [place] Care Team Related Persons Name: JEREMY WILCOX Address: home [address] [place] [phone]"
--- NOTE | 2023-12-31 07:02 | XRay Report ---
XR chest 1V portable HISTORY: 83 years-old Male Sepsis COMPARISON: 11/02/2021 TECHNIQUE: AP view of the chest FINDINGS: Cardiac silhouette is mildly enlarged. Unchanged right hemidiaphragmatic elevation. Atherosclerosis o f the aorta. No pneumothorax. Small left pleural effusion. There are patchy multifocal mid to lower l irene zone prominent airspace opacities, left greater than right. Bones appear grossly intact. IMPRESSION: 1. Patchy bilateral airspace opacities, left greater than right suggestive of multifocal pneumonia. 2. Small left pleural effusion. ACT 112: Negative or not required by law. The above report was generated using voice recognition software. It may contain grammatical, syntax o r spelling errors. Electronically signed by: Andrea Omalley M.D. 12/31/2023 7:01 AM
[2023-12-31 07:13] LABS: Hematocrit (blood only) 34.5 % (42.0-52.0); Hemoglobin 12.1 g/dl (14.0-18.0); Mean Corpuscular Hemoglobin 31.9 pg (25.0-34.0); Mean Corpuscular Hgb Conc 35.1 g/dL (32.0-36.0); Mean Platelet Volume 8.9 fL (9.4-12.4); Platelet Count 190 K/uL (130-400); RDW Coefficient of Variation 12.5 % (11.5-14.5); RDW Standard Deviation 41.9 fL (36.4-46.3); Red Blood Count 3.79 M/uL (4.70-6.10); White Blood Count 5.22 K/ul (4.8-10.8)
[2023-12-31 07:27] LABS: BUN Creatinine Ratio 19.2 (10-20); Calcium 8.6 mg/dl (8.6-10.3); Creatinine Clr Calc Pharmacy 52.2 ml/min; Est GFR (African American) 76.1 ml/min; Est GFR (Non-African American) 65.6 ml/min; Potassium 4.2 mmol/L (3.5-5.1)
[2023-12-31 07:36] LABS: Basophils # (auto) 0.01 K/uL (0.00-0.20); Basophils % (auto) 0.2 %; Immature Granulocytes # (auto) 0.02 K/uL (0.01-0.20); Immature Granulocytes % (auto) 0.4 %; Lymphocytes # (auto) 0.28 K/uL (1.20-3.40); Lymphocytes % (auto) 5.4 %; Monocytes # (auto) 0.14 K/uL (0.11-0.59); Monocytes % (auto) 2.7 %; Neutrophils # (auto) 4.77 K/uL (1.40-6.50); Neutrophils % (auto) 91.3 %
[2023-12-31] MEDS: dexAMETHasone 6 MG in SYRINGE 0 ML IV SCH (07:59)
[2023-12-31] MEDS: ATORVASTATIN 10 MG TAB PO SCH (08:00)
[2023-12-31] MEDS: LOSARTAN POTASSIUM 50 MG TAB PO SCH (08:00)
[2023-12-31] MEDS: ENOXAPARIN INJ 40 MG/0.4 ML SYR SQ SCH (08:00)
[2023-12-31] MEDS: CEFEPIME 2,000 MG in SYRINGE 0 ML IV SCH (08:07)
[2023-12-31] MEDS ORDERED: hydroCHLOROthiazide 25 MG TAB PO SCH (09:00)
--- NOTE | 2023-12-31 12:52 | Electrocardiogram Report ---
Test Reason : Blood Pressure : */* mmHG Vent. Rate : 91 BPM Atrial Rate : 91 BPM P-R Int : 122 ms QRS Dur : 90 ms QT Int : 374 ms P-R-T Axes : -10 -32 65 degrees QTcB Int : 460 ms Normal sinus rhythm Left axis deviation Abnormal ECG No previous ECGs available Confirmed by Trevor Suazo ([id number]) on 12/31/2023 12:51:37 PM Referred By: REFERRED SELF Confirmed By: Trevor Suazo
--- NOTE | 2023-12-31 15:01 | Hospitalist Progress Note ---
Date of Service December 31, 2023 Assessment & Plan (1) Left lower lobe pneumonia: Plan: Multifocal pneumoniasuspect secondary bacterial overgrowth after initial viral insults. Appears to be improving, just cannot quite wean oxygen yet. Continue Zithromax, change cefepime to ceftriaxone. Anticipate ongoing improvement. Encouraged activity and incentive spirometry. (2) Acute hypoxic respiratory failure: Plan: Patient's SpO2 was 88% on RA on arrival Continue antibiotics, pulmonary toilet, supportive care. Wean oxygen as possible (3) COVID: Plan: suspect COVID was the initial phase of his illness last week, suspect what really landed him in the hospital was a secondary bacterial overgrowth pneumonia. No need for specific COVID related treatment. (4) Hypertension: Plan: Continue losartan, HCTZ, Blood pressure reasonable given the situation (5) Dyslipidemia: Plan: Continue atorvastatin Plan Disposition: stable, anticipate home once we are able to wean oxygen Full code Regular diet VTE PPx: Lovenox 40 mg SQ q24h Admission and Anticipated Discharge Date Admission Date: December 30, 2023 Subjective Feeling better overall. Still coughing some, but not really short of breath. Has not gotten up and around much. present. She notes that she helped him get changed and he seemed more or less at his baseline level of function.Updated to the best my ability and to their satisfaction. Review of Systems Review of Systems: All systems reviewed & are unremarkable except as noted in HPI & below Physical Exam Physical Exam: In general he is awake and alert pleasant no distress. 89% on room air with no dyspnea. After incentive spirometry he coughed several times, but unfortunately is still 89% on room air. Breathing unlabored no accessory muscle use good effort. Skin without rashes pallor or icterus. Neuro without focal deficits. Results & Data Results & Data Vital Signs (Past 12 Hours) Vital Signs Temp Pulse Pulse Resp BP Pulse Ox O2 Del Method 12/31/23 11:40 97.5 F L 63 17 131/67 92 Nasal Cannula 12/31/23 08:00 97.0 F L 57 L 18 131/70 93 Nasal Cannula 12/31/23 07:30 54 L O2 Flow Rate 12/31/23 11:40 3 12/31/23 08:00 3 12/31/23 07:30 PG Care Time/CCT Total # of Minutes Spent Total Time Spent with Patient: Total time spent is greater than 50% in coordination of care (as documented) at patient's floor/unit and/or counseling patient: Coding Level of Care Code 00820 SUB INP/OBS CARE MIN Diagnoses Left lower lobe pneumonia J18.9 Pneumonia type: due to unspecified organism Acute hypoxic respiratory failure J96.01 COVID U07.1 Hypertension I10 Dyslipidemia E78.5 (1) Left lower lobe pneumonia Pneumonia type: due to unspecified organism Qualified Code(s): J18.9 - Pneumonia, unspecified organism
[2023-12-31] MEDS: AZITHROMYCIN 500 MG in DEXTROSE 5% 250 ML IV SCH (19:53)
[2024-01-01 06:29] LABS: Basophils # (auto) 0.04 K/uL (0.00-0.20); Basophils % (auto) 0.3 %; Hematocrit (blood only) 32.8 % (42.0-52.0); Hemoglobin 11.3 g/dl (14.0-18.0); Immature Granulocytes # (auto) 0.07 K/uL (0.01-0.20); Immature Granulocytes % (auto) 0.5 %; Lymphocytes # (auto) 0.47 K/uL (1.20-3.40); Lymphocytes % (auto) 3.2 %; Mean Corpuscular Hemoglobin 31.7 pg (25.0-34.0); Mean Corpuscular Hgb Conc 34.5 g/dL (32.0-36.0); Mean Corpuscular Volume 91.9 fL (80.0-100.0); Mean Platelet Volume 8.9 fL (9.4-12.4); Monocytes % (auto) 6.9 %; Neutrophils # (auto) 12.91 K/uL (1.40-6.50); Neutrophils % (auto) 89.1 %; Platelet Count 223 K/uL (130-400); RDW Coefficient of Variation 12.7 % (11.5-14.5); RDW Standard Deviation 42.5 fL (36.4-46.3); Red Blood Count 3.57 M/uL (4.70-6.10); White Blood Count 14.49 K/ul (4.8-10.8)
[2024-01-01 06:46] LABS: BUN Creatinine Ratio 19.2 (10-20); Calcium 8.2 mg/dl (8.6-10.3); Creatinine Clr Calc Pharmacy 45.2 ml/min; Est GFR (Non-African American) 55.2 ml/min; Potassium 3.7 mmol/L (3.5-5.1)
[2024-01-01] MEDS: cefTRIAXone SODIUM 2,000 MG/50 ML BAG IV SCH (10:00)
[2024-01-01] MEDS: ALBUT/IPRATROP 3MG/0.5MG NEB 3 ML VIAL NEB SCH (13:29)
--- NOTE | 2024-01-01 15:48 | Hospitalist Progress Note ---
Date of Service January 01, 2024 Assessment & Plan (1) Left lower lobe pneumonia: Plan: Multifocal pneumoniasuspect secondary bacterial overgrowth after initial viral insults. Feels okay, cough worse, unable to wean oxygensuspect mucous plugging as he is going through catarrhal phase of this pneumonia. Increase pulmonary toilet (encouraged incentive spirometry and flutter valve, add nebs), continue current antibiotics and supportive care. (2) Acute hypoxic respiratory failure: Plan: Patient's SpO2 was 88% on RA on arrival Continue antibiotics, pulmonary toilet, supportive care. Wean oxygen as possibleAs above (3) COVID: Plan: suspect COVID was the initial phase of his illness last week, suspect what really landed him in the hospital was a secondary bacterial overgrowth pneumonia. No need for specific COVID related treatment. off steroids (4) Hypertension: Plan: Continue losartan, HCTZ, Blood pressure reasonable given the situation (5) Dyslipidemia: Plan: Continue atorvastatin Plan Disposition: stable, anticipate home once we are able to wean oxygen Full code Regular diet VTE PPx: Lovenox 40 mg SQ q24h Admission and Anticipated Discharge Date Admission Date: December 30, 2023 Subjective Coughing a lot more/cough is a lot worse, but does not really feel more shortness of breath. We have been unable to wean oxygen. No other new complaints. Review of Systems Review of Systems: All systems reviewed & are unremarkable except as noted in HPI & below Physical Exam Physical Exam: In general he is awake and alert pleasant no distress. HEENT normocephalic atraumatic mucous membranes moist. Breathing unlabored no accessory muscle use good effort. Lungs are generally clear throughout, scattered rhonchi with intermittent coughing. Skin shows no rashes no pallor or icterus. Neuro without focal deficits. Results & Data Results & Data Vital Signs (Past 12 Hours) Vital Signs Temp Pulse Pulse Resp BP Pulse Ox O2 Del Method 01/01/24 13:30 102 H 23 91 Nasal Cannula 01/01/24 13:10 98.1 F 77 17 132/65 90 Nasal Cannula 01/01/24 11:33 Nasal Cannula 01/01/24 08:00 81 O2 Flow Rate 01/01/24 13:30 3 01/01/24 13:10 3 01/01/24 11:33 3 01/01/24 08:00 PG Care Time/CCT Total # of Minutes Spent Total Time Spent with Patient: Total time spent is greater than 50% in coordination of care (as documented) at patient's floor/unit and/or counseling patient: Coding Level of Care Code 68220 SUB INP/OBS CARE 350MIN Diagnoses Left lower lobe pneumonia J18.9 Pneumonia type: due to unspecified organism Acute hypoxic respiratory failure J96.01 COVID U07.1 Hypertension I10 Dyslipidemia E78.5 (1) Left lower lobe pneumonia Pneumonia type: due to unspecified organism Qualified Code(s): J18.9 - Pneumonia, unspecified organism
[2024-01-01] MEDS: ALBUT/IPRATROP 3MG/0.5MG NEB 3 ML VIAL NEB STA (16:11)
[2024-01-02 07:13] LABS: Hematocrit (blood only) 35.6 % (42.0-52.0); Hemoglobin 11.7 g/dl (14.0-18.0); Mean Corpuscular Hemoglobin 31.1 pg (25.0-34.0); Mean Corpuscular Hgb Conc 32.9 g/dL (32.0-36.0); Mean Corpuscular Volume 94.7 fL (80.0-100.0); Mean Platelet Volume 8.9 fL (9.4-12.4); Platelet Count 236 K/uL (130-400); RDW Coefficient of Variation 13.1 % (11.5-14.5); RDW Standard Deviation 45.1 fL (36.4-46.3); Red Blood Count 3.76 M/uL (4.70-6.10); White Blood Count 12.21 K/ul (4.8-10.8)
[2024-01-02 07:39] LABS: Basophils # (auto) 0.03 K/uL (0.00-0.20); Basophils % (auto) 0.2 %; Eosinophils # (auto) 0.05 K/uL (0.00-0.50); Eosinophils % (auto) 0.4 %; Immature Granulocytes # (auto) 0.11 K/uL (0.01-0.20); Immature Granulocytes % (auto) 0.9 %; Lymphocytes # (auto) 0.36 K/uL (1.20-3.40); Lymphocytes % (auto) 2.9 %; Monocytes # (auto) 0.66 K/uL (0.11-0.59); Monocytes % (auto) 5.4 %; Neutrophils % (auto) 90.2 %
[2024-01-02 07:41] LABS: BUN Creatinine Ratio 16.2 (10-20); Calcium 8.4 mg/dl (8.6-10.3); Creatinine Clr Calc Pharmacy 46.3 ml/min; Est GFR (Non-African American) 56.9 ml/min; Potassium 3.8 mmol/L (3.5-5.1)
--- NOTE | 2024-01-02 09:03 | CT Scan Report ---
CT OF THE CHEST WITHOUT IV CONTRAST CLINICAL HISTORY: Progressive hypoxia. COMPARISON STUDY: Chest radiograph December 30, 2023. CT DOSE: 303.99 mGy.cm TECHNIQUE: Axial images of the chest were obtained without IV contrast. Images were reviewed in the axial, sagittal, and coronal planes. IV contrast was not administered for this examination. Automat ed exposure control was utilized for the study. A dose lowering technique was utilized adhering to t he principles of ALARA. FINDINGS: Mildly enlarged mediastinal lymph nodes are likely reactive. Index AP window lymph node on image 80 of 213 measures 1.4 x 1 cm. The heart is mildly enlarged and there is mild dilatation of th e central pulmonary arteries. There is moderate coronary artery calcification. No pericardial effusio n is present. There is a small hiatal hernia. There is no pneumothorax or pleural effusion. The centr al airways are patent. Extensive ground glass opacities with interlobular septal thickening throughou t the lungs is noted. There are small developing subpleural areas of consolidation. No cavitation. No a 1.9 cm lateral segment hepatic cyst is incidentally noted. Visualized portions of the upper abdome n are unremarkable. IMPRESSION: 1. Extensive alveolar opacities throughout the lungs suggestive of multifocal pneumonia. A viral etio logy is favored however superimposed bacterial pneumonia could be present. No central obstructing mas s. No cavitation. No pleural effusions. 2. Mild cardiomegaly and moderate coronary artery calcification. 3. Mildly enlarged mediastinal lymph nodes, likely reactive. ACT 112: Negative or not required by law. Electronically signed by: Ramin Da Silva M.D. 01/02/2024 9:01 AM
[2024-01-02] MEDS: DEXAMETHASONE SOD INJ 4 MG/ML VIAL IV STA (10:08)
[2024-01-02] MEDS ORDERED: DEXAMETHASONE SOD INJ 4 MG/ML VIAL IV SCH (10:15)
[2024-01-02 10:41] LABS: C Reactive Protein 16.95 mg/dl (0-0.5)
[2024-01-02] MEDS: FUROSEMIDE 40 MG/4 ML VIAL IV ONE (11:23)
[2024-01-02] MEDS: dexAMETHasone 6 MG in SYRINGE 0 ML IV SCH (11:24)
--- NOTE | 2024-01-02 13:35 | Hospitalist Progress Note ---
Date of Service January 01, 2024 Assessment & Plan (1) Left lower lobe pneumonia: Plan: - Multifocal pneumoniasuspect secondary bacterial overgrowth after initial viral insults - Patient presentation likely 2/2 COVID pneumonia impression - Will continue abx, but SOB and cough likely due to inflammation and fluid build up, with component of mucous plugging - Restarted Decadron 6mg IV and Lasix 40mg IV for pulmonary congestion - patient improving - Continue flutter valve and incentive spirometer (2) Acute hypoxic respiratory failure: Plan: - Patient's SpO2 was 88% on RA on arrival - Patient O2 requirement increased to 15L overnight at 89-90% SpO2 - Improved to 93% on 5L with Lasix, Decadron, Abx - Continue pulmonary toilet, supportive care. Wean oxygen as possible (3) COVID: Plan: - Pneumonia likely more viral in etiology based off signs and symptoms - No need for specific COVID related treatment - Condition improving (4) Hypertension: Plan: Continue losartan, HCTZ, Blood pressure reasonable given the situation (5) Dyslipidemia: Plan: Continue atorvastatin Plan Disposition: stable, anticipate home once we are able to wean oxygen Full code Regular diet VTE PPx: Lovenox 40 mg SQ q24h Admission and Anticipated Discharge Date Admission Date: December 30, 2023 Supervising Physician Co-Signing Physician Notes I personally examined the patient and verified all [place] points of history and exam, discussed case, and agree with decision making with Dr Smith A bit more short of breath, oxygen requirements yesica fairly significantly through the night. Discussed findings, CT findings, ongoing plans with both patient and . Vitals noted, in general he is fatigued and appears mildly dyspneic. HEENT normocephalic atraumatic mucous membranes moist. Lungs now diffusely crackly he is mildly tachypneic but without accessory muscle use and fortunately without conversational dyspnea. Neuro shows no focal deficits. CT scan reviewed (both report and images, as well as labs, etc.) pneumonia with hypoxic respiratory failureupon further review actually does appear to be COVID-pneumoniahis initial presentation with his history and chest x-ray were much more suggestive of having had COVID and then getting sick with a secondary bacterial overgrowth, but with his worsening oxygen requirement repeat CT scan done this morning was very consistent with a multifocal pneumonia much more consistent with viral etiology. Given the duration of illness it is exceedingly unlikely antivirals would be helpful (he was sick for a week prior to admission) resume steroids, Lasix to pull fluid, ongoing supportive care. Given the potential still for some degree of concomitant bacterial overgrowth hesitant to stop antibiotics at this time. Discussed with patient and overall situation, and how this development likely will mean a more prolonged hospitalization. DVT prophylaxisLovenox otherwise as above Subjective Ion Leary seen today resting in bed. Coughing and SOB have worsened over night. Patient's O2 requirements increased over night requiring up to 15L to keep O2 sat >90%. This morning patient was still requiring 13L and a stat chest CT showed a COVID viral multifocal pneumonia impression with subpleural consolidations. After receiving Decadron and IV Lasix patient's status has improved and is satting 93% on 5L. Patient denies fevers, chills, headache, chest pain/tightness/palpitations. Patient does endorse SOB and cough, but feels better than he did overnight. Physical Exam Physical Exam: General: patient resting comfortably, NAD, non-toxic in appearance, answers questions appropriately. Skin: warm, dry, intact HEENT: NC/AT, anicteric sclera, conjunctiva without injection, moist mucus membranes. Heart: +S1/S2, regular, no m/r/g Lungs: equal air entry bilaterally, no rales/rhonchi/wheezes Abd: +BS, soft, NT/ND Ext: warm, no clubbing/cyanosis or edema Neuro: nonfocal, speech intact, no facial droop, moving all extremities. Results & Data Results & Data Vital Signs (Past 12 Hours) Vital Signs Temp Pulse Pulse Resp BP Pulse Ox O2 Del Method 01/01/24 13:30 102 H 23 91 Nasal Cannula 01/01/24 13:10 36.7 C 77 17 132/65 90 Nasal Cannula 01/01/24 11:33 Nasal Cannula 01/01/24 08:00 81 O2 Flow Rate 01/01/24 13:30 3 01/01/24 13:10 3 01/01/24 11:33 3 01/01/24 08:00 Resident Activity Tracking Resident Involvement: Resident Care Provided Care Provided: Adult Hospital Medicine (1) Left lower lobe pneumonia Pneumonia type: due to unspecified organism Qualified Code(s): J18.9 - Pneumonia, unspecified organism (4) Hypertension Hypertension type: unspecified Qualified Code(s): I10 - Essential (primary) hypertension
--- NOTE | 2024-01-02 18:08 | Billing Data ---
Date of Service January 02, 2024 Coding Level of Care Code 96319 SUB INP/OBS CARE 3MIN
[2024-01-02] MEDS: AZITHROMYCIN 250 MG TAB PO SCH (20:14)
[2024-01-02 23:53] LABS: Base Excess ABG 1.7 mEq/L (-9-1.8); HCO3 ABG 26 mmol/L (19-24); Oxygen Saturation ABG 94.2 % (90-95); PCO2 ABG 38 mmHg (35-46); PO2 ABG 63 mmHg (80-95); pH ABG 7.44 (7.35-7.45)
[2024-01-02 23:59] LABS: Allen Test Pos (Pos)
[2024-01-03] MEDS: dexAMETHasone 6 MG in SYRINGE 0 ML IV ONE (00:37)
[2024-01-03 03:23] LABS: iSTAT Arterial Blood Gas HCO3 25 meg/L (19-24); iSTAT Arterial Blood Gas pCO2 37 mmHg (35-46); iSTAT Arterial Blood Gas pH 7.43 (7.35-7.45); iSTAT Arterial Blood Gas pO2 72 mmHg (80-95); iSTAT Carbon Dioxide 26 mmol/L (24-31); iSTAT Hematocrit 34 % (42-52); iSTAT Hemoglobin 11.6 g/dl (14.0-18.0); iSTAT Potassium 3.8 mmol/L (3.3-5.0); iSTAT Sodium 137 mmol/L (135-144)
--- NOTE | 2024-01-03 06:19 | Communication Note ---
Date of Service: January 03, 2024 Alerted by nursing ~10:30PM that pt's oxygen sats dropping to the 80s on 8L oxymask. He was turned up to 10L oxymask and still not satting over 90%. Florecita arnold evaluated pt at bedside and recommending increasing his O2 to 11L oxymask and encouraging deep breathing. Pt still dropping down to high 80s. Pt evaluated at bedside and overall appeared well- no respiratory distress. Lungs CTA with shallow breaths. ABG at that time show pH 7.44, pCO2 38, pO2 63. Pt given a dose of dexamethasone 6mg and proned which improved his oxygenation to low 90s on 5L oxymask. Alerted by nursing ~2AM that pt's oxygen sats dropped to high 70s while changing positions. He was put on 15L oxymask and satting 90%. Pt again evaluated at bedside with unchanged exam. Pt placed on nonrebreather in transition to high flow. Repeat POC ABG showed pH 7.43, pCO2 37, pO2 72. Pt placed on high flow NC (flow rate 50L/min, FiO2 100) which resulted in oxygen sats in the low 90s. Pt transferred to PCU for further monitoring. Resident Activity Tracking Resident Involvement: Resident Care Provided Care Provided: Adult Hospital Medicine
[2024-01-03] MEDS: FUROSEMIDE 40 MG/4 ML VIAL IV STA (10:08)
--- NOTE | 2024-01-03 16:20 | Hospitalist Progress Note ---
Date of Service January 03, 2024 Assessment & Plan (1) Left lower lobe pneumonia: Plan: - Multifocal pneumoniasuspect secondary bacterial overgrowth after initial viral insults - Patient presentation likely 2/2 COVID pneumonia impression - Will continue abx, but SOB and cough likely due to inflammation and fluid build up, with component of mucous plugging - Restarted Decadron 6mg IV and Lasix 40mg IV for pulmonary congestion - patient improving - Continue flutter valve and incentive spirometer (2) Acute hypoxic respiratory failure: Plan: - Patient's SpO2 was 88% on RA on arrival - Patient O2 requirement increased to 15L overnight at 89-90% SpO2 - Improved to 93% on 5L with Lasix, Decadron, Abx - Continue pulmonary toilet, supportive care. Wean oxygen as possible (3) COVID: Plan: - Pneumonia likely more viral in etiology based off signs and symptoms - No need for specific COVID related treatment - Condition improving (4) Hypertension: Plan: Continue losartan, HCTZ, Blood pressure reasonable given the situation (5) Dyslipidemia: Plan: Continue atorvastatin Plan Disposition: stable, anticipate home once we are able to wean oxygen Full code Regular diet VTE PPx: Lovenox 40 mg SQ q24h Admission and Anticipated Discharge Date Admission Date: December 30, 2023 Supervising Physician Co-Signing Physician Notes I personally examined the patient and verified all [place] points of history and exam, discussed case, and agree with decision making with Dr Smith feels ok eating ok not too sob. Vitals noted, in general he is fatigued but appears nad. HEENT normocephalic atraumatic mucous membranes moist. lungs with diffuse rales but better than yesterday good air entry no accessory muscles good effort pneumonia with hypoxic respiratory failure COVID-pneumoniacontinue diuresis as he tolerates. Continue steroids. Continue antibiotic coverage for possibility of secondary bacterial overgrowth present (especially given his timeline where he was ill and then suddenly got worse). Encouraged proningeducated on the pathophysiology/benefit. Encouraged ongoing p.o. food intake. Titrate oxygen as possible. DVT prophylaxisLovenox otherwise as above David Leary seen today resting in bed. Coughing and SOB have worsened over night. Patient's O2 requirements increased over night once again requiring up to 50L of high flow oxygen to keep O2 sat >90%. The patient was seen today and was not in distress but continues to require high levels of supplemental oxygen. The patient was briefly tachypneic satting in the 80s when he removed his oxygen to have a BM that came on suddenly, but is now on 45L of High flow nasal cannula with improved breathing. Patient denies fevers, chills, headache, chest pain/tightness/palpitations. Patient does endorse SOB and cough, but has improved from the night. Physical Exam Physical Exam: General: patient resting comfortably, NAD, non-toxic in appearance, answers questions appropriately. Skin: warm, dry, intact HEENT: NC/AT, anicteric sclera, conjunctiva without injection, moist mucus membranes. Heart: +S1/S2, regular, no m/r/g Lungs: equal air entry bilaterally, no rales/rhonchi/wheezes Abd: +BS, soft, NT/ND Ext: warm, no clubbing/cyanosis or edema Neuro: nonfocal, speech intact, no facial droop, moving all extremities. Results & Data Results & Data Vital Signs (Past 12 Hours) Vital Signs Temp Pulse Pulse Resp BP BP Pulse Ox 01/03/24 15:47 36.7 C 81 21 122/67 90 01/03/24 15:31 76 26 H 90 01/03/24 15:29 74 26 H 98 01/03/24 15:10 79 01/03/24 11:31 36.3 C L 99 H 22 98/60 L 96 01/03/24 10:28 75 22 97 01/03/24 08:00 01/03/24 08:00 01/03/24 08:00 73 01/03/24 07:47 37.1 C 88 21 121/66 91 01/03/24 07:00 83 22 93 01/03/24 05:36 36.6 C 88 18 122/64 94 01/03/24 05:01 77 18 92 01/03/24 04:30 Pulse Ox O2 Del Method O2 Del Method O2 Flow Rate O2 Flow Rate FiO2 01/03/24 15:47 High Flow Nasal Cannula 45 01/03/24 15:31 High Flow Nasal Cannula 45 80 01/03/24 15:29 High Flow Nasal Cannula 60 100 01/03/24 15:10 01/03/24 11:31 High Flow Nasal Cannula 60 01/03/24 10:28 High Flow Nasal Cannula 50 100 01/03/24 08:00 High Flow Nasal Cannula 50 98 01/03/24 08:00 99 High Flow Nasal Cannula 50 01/03/24 08:00 01/03/24 07:47 High Flow Nasal Cannula 50 01/03/24 07:00 High Flow Nasal Cannula 50 100 01/03/24 05:36 High Flow Nasal Cannula 50 100 01/03/24 05:01 High Flow Nasal Cannula 50 100 01/03/24 04:30 High Flow Nasal Cannula 50 100 Resident Activity Tracking Resident Involvement: Resident Care Provided Care Provided: Adult Hospital Medicine (1) Left lower lobe pneumonia Pneumonia type: due to unspecified organism Qualified Code(s): J18.9 - Pneumonia, unspecified organism (4) Hypertension Hypertension type: unspecified Qualified Code(s): I10 - Essential (primary) hypertension
--- NOTE | 2024-01-03 18:21 | Billing Data ---
Date of Service January 03, 2024 Coding Level of Care Code 58197 SUB INP/OBS CARE MIN
[2024-01-03] MEDS: FUROSEMIDE INJ 20 MG/2 ML VIAL IV ONE (20:07)
[2024-01-04 07:19] LABS: Hematocrit (blood only) 35.5 % (42.0-52.0); Hemoglobin 12.2 g/dl (14.0-18.0); Mean Corpuscular Hemoglobin 31.8 pg (25.0-34.0); Mean Corpuscular Hgb Conc 34.4 g/dL (32.0-36.0); Mean Corpuscular Volume 92.4 fL (80.0-100.0); Mean Platelet Volume 8.8 fL (9.4-12.4); Platelet Count 339 K/uL (130-400); RDW Coefficient of Variation 12.8 % (11.5-14.5); RDW Standard Deviation 43.1 fL (36.4-46.3); Red Blood Count 3.84 M/uL (4.70-6.10); White Blood Count 13.81 K/ul (4.8-10.8)
--- NOTE | 2024-01-04 07:21 | Hospitalist Progress Note ---
Date of Service January 04, 2024 Assessment & Plan (1) Left lower lobe pneumonia: Plan: - Multifocal pneumoniasuspect secondary bacterial overgrowth after initial viral insults - Patient presentation likely 2/2 COVID pneumonia impression - Will continue abx, but SOB and cough likely due to inflammation and fluid build up, with component of mucous plugging - Continue flutter valve and incentive spirometer - continue Decadron 6mg IV and given several doses of lasix yesterday for pulmonary congestion - patient improving, just slowly - will do another dose of lasix today, encourage pt to prone at times (2) Acute hypoxic respiratory failure: Plan: - Patient's SpO2 was 88% on RA on arrival - Patient O2 requirement increased to HFNC - Improved with Lasix, Decadron, Abx - Continue pulmonary toilet, supportive care. Wean oxygen as possible (3) COVID: Plan: - Pneumonia likely more viral in etiology based off signs and symptoms - No need for specific COVID related treatment - Condition improving, although slowly (4) Hypertension: Plan: - Blood pressure reasonable given the situation - Continue HCTZ, - hold losartan today as plan for further diuresis today (5) Dyslipidemia: Plan: - Continue atorvastatin Plan VTE PPx: Lovenox 40 mg SQ q24h Admission and Anticipated Discharge Date Admission Date: December 30, 2023 Supervising Physician Co-Signing Physician Notes I personally examined the patient and verified all [place] points of history and exam, discussed case, and agree with decision making with Dr Villalobos starting to feel better. less sob. ate reasonably well. vitals noted nad breathing unlabored no accessory muscles good effort skin no rashes no pallor or icterus neuro no focal deficits pneumonia with hypoxic respiratory failure COVID-pneumoniacontinue diuresis as he tolerates. Continue steroids. maybe starting to improve (feels better, O2 sats now more stable - still needing significant O2 requirements but not fluctuating/worsening, CRP going down) Continue antibiotic coverage for possibility of secondary bacterial overgrowth present (especially given his timeline where he was ill and then suddenly got worse). Encouraged proning againeducated on the pathophysiology/benefit. Encouraged ongoing p.o. food intake. Titrate oxygen as possible. DVT prophylaxisLovenox otherwise as above Subjective Today, pt states he is feeling okay, all things considered. He states his breathing feels maybe a smidge better and he states he knows it will take time to improve. No chest pain, no abdominal pain. No other questions or complaints at this point. He was living at home with his and fully independent with ADLs prior to this hospitalization. Review of Systems Review of Systems: Per HPI. Physical Exam Physical Exam: General:Alert and oriented, no acute distress, HEENT: Normocephalic, moist oral mucosa, Cardio: Regular rate and rhythm, Resp:Lungs clear to auscultation b/l but sounds are somewhat diminished globally Skin: Warm, pink, dry, Results & Data Results & Data Vital Signs (Past 12 Hours) Vital Signs Temp Pulse Pulse Resp BP Pulse Ox O2 Del Method 01/04/24 04:10 64 18 96 High Flow Nasal Cannula 01/04/24 03:02 37.1 C 82 20 108/62 97 High Flow Nasal Cannula 01/04/24 00:06 78 01/03/24 23:05 69 20 96 High Flow Nasal Cannula 01/03/24 22:56 37.2 C 74 20 110/56 L 98 High Flow Nasal Cannula 01/03/24 21:00 High Flow Nasal Cannula 01/03/24 19:38 75 20 97 High Flow Nasal Cannula O2 Flow Rate FiO2 01/04/24 04:10 45 80 01/04/24 03:02 01/04/24 00:06 01/03/24 23:05 45 80 01/03/24 22:56 01/03/24 21:00 45 85 01/03/24 19:38 45 80 Resident Activity Tracking Resident Involvement: Resident Care Provided Care Provided: Adult Hospital Medicine (1) Left lower lobe pneumonia Pneumonia type: due to unspecified organism Qualified Code(s): J18.9 - Pneumonia, unspecified organism (4) Hypertension Hypertension type: unspecified Qualified Code(s): I10 - Essential (primary) hypertension
[2024-01-04 07:36] LABS: Basophils # (auto) 0.02 K/uL (0.00-0.20); Basophils % (auto) 0.1 %; Immature Granulocytes # (auto) 0.09 K/uL (0.01-0.20); Immature Granulocytes % (auto) 0.7 %; Lymphocytes # (auto) 0.35 K/uL (1.20-3.40); Lymphocytes % (auto) 2.5 %; Monocytes # (auto) 0.78 K/uL (0.11-0.59); Monocytes % (auto) 5.6 %; Neutrophils # (auto) 12.57 K/uL (1.40-6.50); Neutrophils % (auto) 91.1 %; Polychromasia 1+
[2024-01-04 07:46] LABS: BUN Creatinine Ratio 27.8 (10-20); C Reactive Protein 7.48 mg/dl (0-0.5); Calcium 8.8 mg/dl (8.6-10.3); Creatinine Clr Calc Pharmacy 40.7 ml/min; Est GFR (African American) 56.5 ml/min; Est GFR (Non-African American) 48.7 ml/min; Potassium 3.7 mmol/L (3.5-5.1)
[2024-01-04] MEDS: FUROSEMIDE 40 MG/4 ML VIAL IV ONE (13:13)
--- NOTE | 2024-01-04 17:48 | Billing Data ---
Date of Service January 04, 2024 Coding Level of Care Code 11611 SUB INP/OBS CARE MIN
--- NOTE | 2024-01-05 06:47 | Hospitalist Progress Note ---
Date of Service January 05, 2024 Assessment & Plan (1) Left lower lobe pneumonia: Plan: - Multifocal pneumoniasuspect secondary bacterial overgrowth after initial viral insults - Patient presentation likely 2/2 COVID pneumonia impression - Will continue abx, but SOB and cough likely due to inflammation and fluid build up, with component of mucous plugging - Continue flutter valve and incentive spirometer - continue Decadron 6mg IV and given several doses of lasix for pulmonary congestion - patient improving, just slowly - encourage pt to prone at times - will do 20 mg IV lasix today (2) Acute hypoxic respiratory failure: Plan: - Patient's SpO2 was 88% on RA on arrival - Patient O2 requirement increased to HFNC 40 L/min at 70 FiO2 - Improved with Lasix, Decadron, Abx - Continue pulmonary toilet, supportive care. Wean oxygen as possible (3) COVID: Plan: - Pneumonia likely more viral in etiology based off signs and symptoms - No need for specific COVID related treatment - Condition improving, although slowly (4) Hypertension: Plan: - Blood pressure reasonable given the situation - Continue HCTZ, - hold losartan with softer blood pressures (5) Dyslipidemia: Plan: - Continue atorvastatin Plan VTE PPx: Lovenox 40 mg SQ q24h Admission and Anticipated Discharge Date Admission Date: December 30, 2023 Supervising Physician Co-Signing Physician Notes I personally examined the patient and verified all [place] points of history and exam, discussed case, and agree with decision making with Dr Villalobos feeling a little better, less sob. continues to eat about 50% of all meals. vitals noted nad breathing unlabored no accessory muscles good effort now on 75% O2 scattered rales but less than before skin no rashes no pallor or icterus neuro no focal deficits pneumonia with hypoxic respiratory failure COVID-pneumoniacontinue diuresis as he tolerates. Continue steroids. showing slow improvement (feels better, O2 sats now more stable - still needing significant O2 requirements but not fluctuating/worsening, maybe improving slightly, CRP going down) Continue antibiotic coverage for possibility of secondary bacterial overgrowth present (especially given his timeline where he was ill and then suddenly got worse). Encouraged ongoing p.o. food intake. Titrate oxygen as possible. DVT prophylaxisLovenox otherwise as above Subjective Today, pt states he is feeling gradually just a small bit better each day and so he notes slight improvement from yesterday. He states he proned a few times yesterday and that he feels that does seem to help, will continue to do that today. Otherwise no chest pain, no nausea, no vomiting, tolerating diet, feeling a bit stronger each day. Review of Systems Review of Systems: Per HPI. Physical Exam Physical Exam: General:Alert and oriented, no acute distress, appears more lively today HEENT: Normocephalic, moist oral mucosa, Cardio: Regular rate and rhythm, Resp:Lungs clear to auscultation b/l but sounds are somewhat diminished globally but perhaps improved somewhat from yesterday Skin: Warm, pink, dry, Results & Data Results & Data Vital Signs (Past 12 Hours) Vital Signs Temp Pulse Pulse Resp BP Pulse Ox O2 Del Method 01/05/24 03:33 69 20 95 High Flow Nasal Cannula 01/05/24 02:54 36.6 C 78 18 127/67 92 Nasal CPAP 01/04/24 23:32 36.6 C 74 18 124/69 97 Nasal CPAP 01/04/24 23:12 66 17 97 High Flow Nasal Cannula 01/04/24 22:27 63 01/04/24 21:00 High Flow Nasal Cannula 01/04/24 19:19 79 17 97 High Flow Nasal Cannula O2 Flow Rate FiO2 01/05/24 03:33 45 80 01/05/24 02:54 01/04/24 23:32 01/04/24 23:12 45 80 01/04/24 22:27 01/04/24 21:00 45 80 01/04/24 19:19 45 80 Resident Activity Tracking Resident Involvement: Resident Care Provided Care Provided: Adult Hospital Medicine (1) Left lower lobe pneumonia Pneumonia type: due to unspecified organism Qualified Code(s): J18.9 - Pneumonia, unspecified organism (4) Hypertension Hypertension type: unspecified Qualified Code(s): I10 - Essential (primary) hypertension
[2024-01-05 06:48] LABS: Basophils # (auto) 0.01 K/uL (0.00-0.20); Basophils % (auto) 0.1 %; Hematocrit (blood only) 37.9 % (42.0-52.0); Hemoglobin 12.8 g/dl (14.0-18.0); Immature Granulocytes # (auto) 0.06 K/uL (0.01-0.20); Immature Granulocytes % (auto) 0.5 %; Lymphocytes # (auto) 0.48 K/uL (1.20-3.40); Lymphocytes % (auto) 4.4 %; Mean Corpuscular Hemoglobin 31.1 pg (25.0-34.0); Mean Corpuscular Hgb Conc 33.8 g/dL (32.0-36.0); Mean Platelet Volume 8.5 fL (9.4-12.4); Monocytes # (auto) 0.98 K/uL (0.11-0.59); Neutrophils # (auto) 9.41 K/uL (1.40-6.50); Platelet Count 349 K/uL (130-400); RDW Coefficient of Variation 12.5 % (11.5-14.5); RDW Standard Deviation 41.8 fL (36.4-46.3); Red Blood Count 4.12 M/uL (4.70-6.10); White Blood Count 10.94 K/ul (4.8-10.8)
[2024-01-05 07:14] LABS: BUN Creatinine Ratio 33.1 (10-20); Creatinine Clr Calc Pharmacy 41.6 ml/min; Est GFR (African American) 58.1 ml/min; Est GFR (Non-African American) 50.1 ml/min; Potassium 4.2 mmol/L (3.5-5.1)
[2024-01-05] MEDS: FUROSEMIDE INJ 20 MG/2 ML VIAL IV ONE (16:30)
--- NOTE | 2024-01-05 16:46 | Billing Data ---
Date of Service January 05, 2024 Coding Level of Care Code 89847 SUB INP/OBS CARE MIN
--- NOTE | 2024-01-06 06:44 | Hospitalist Progress Note ---
Date of Service January 06, 2024 Assessment & Plan (1) Left lower lobe pneumonia: (2) Acute hypoxic respiratory failure: (3) COVID: (4) Hypertension: (5) Dyslipidemia: Plan (1) Left lower lobe pneumonia: - Multifocal pneumonia, suspect secondary bacterial overgrowth after initial viral insults - Patient presentation likely 2/2 COVID pneumonia impression - Will continue ceftriaxone, but SOB and cough likely due to inflammation and fluid build up, with component of mucous plugging - Continue flutter valve and incentive spirometer - continue Decadron 6mg IV - patient improving, just slowly - encourage pt to prone at times (2) Acute hypoxic respiratory failure: - Patient's SpO2 was 88% on RA on arrival - Patient O2 requirement: HFNC 40 L/min at 70 FiO2 - Improved with Lasix, Decadron, Abx - consider another dose of lasix for pulmonary congestion if patient's O2 r equirements remain high - Continue pulmonary toilet, supportive care. Wean oxygen as possible (3) COVID - Pneumonia likely more viral in etiology based off signs and symptoms - repeat procalcitonin, 0.08 - Condition improving, although slowly (4) Hypertension: - Blood pressure reasonable given the situation - Continue HCTZ, - hold losartan with softer blood pressures (5) Dyslipidemia: - Continue atorvastatin Plan Code status: Full code Disposition: Med-Surg VTE PPx: Lovenox 40 mg SQ q24h FENGI: regular diet Admission and Anticipated Discharge Date Admission Date: December 30, 2023 Supervising Physician Co-Signing Physician Notes Attending Physician Supervision Note: I independently interviewed and examined the patient and verified the [place] history and physical, reviewed labs and image studies and agree with findings and care plan noted above. COVID multifocal pneumonia with Acute respiratory failure - Afebrile. Persistently hypoxic needing high flow O2. -Checked procalcitonin 01/05 - normal. CRP down to 2 from 15 on admission. -Continue dexamethasone -Continue high flow O2 and titrate as possible. -Blood and sputum cultures negative. Has been on IV abx since admission - d/c azithromycin. Consider d/c rocephin in am. -prn lasix doses. HTN - continue HCTZ. Losartan on hold. Lovenox Subjective Today, pt states he is feeling gradually just a small bit better each day and so he notes slight improvement from yesterday. He states he proned a few times yesterday and that he feels that does seem to help, will continue to do that t sloane. Otherwise no chest pain, no N/V, tolerating diet, feeling a bit stronger each day. Patient states he's feeling better this morning and continues to feel better each day but his O2sats fall into high 70s/low 80s when he moves in bed or attempts to get up and use the restroom. When patient is on the high flow O2 he doesn't feel subjectively SOB. Review of Systems Constitutional: no fever, no chills, no body aches and no fatigue Eyes: + dry eyes and + itchy eyes; no worsenin g vision Ear, Nose, Mouth, Throat: no ear pain, no nasal congestion, no nasal discharge, no post nasal drip, no facial pain, no sinus pain/pressure and no sore throat Respiratory: + cough, + chest congestion and + dyspne a; no hemoptysis Cardiovascular: + dyspnea at rest and + orthopnea; no ed ludivina and no calf pain Gastrointestinal: no nausea, no vomiting and no diarrhea/loose stools Genitourinary: no dysuria or no urinary frequency Neurologic: no tingling and no numbness Physical Exam Constitutional: WD/WN, vitals as above Respiratory: + uses accessory muscles, + cough, able to speak in complete sentences and + tachypneic Auscultation: + crackles Cardiovascular: RRR, no murmur, no edema Gastrointestinal (Abdomen): normal bowel sounds, soft, nontender, no hepatosplenomegaly Psychiatric: A+Ox3, euthymic affect Results & Data Results & Data Vital Signs (Past 12 Hours) Vital Signs Temp Pulse Pulse Resp BP Pulse Ox O2 Del Method 01/06/24 03:56 82 18 94 High Flow Nasal Cannula 01/06/24 02:40 36.7 C 90 16 125/74 91 Nasal CPAP 01/05/24 22:55 36.8 C 83 18 120/67 91 Nasal CPAP 01/05/24 22:08 69 01/05/24 21:00 High Flow Nasal Cannula 01/05/24 20:08 36.4 C L 90 22 126/67 91 High Flow Nasal Cannula 01/05/24 19:39 81 18 89 L High Flow Nasal Cannula O2 Flow Rate FiO2 01/06/24 03:56 40 70 01/06/24 02:40 01/05/24 22:55 01/05/24 22:08 01/05/24 21:00 40 75 01/05/24 20:08 40 70 01/05/24 19:39 40 70 Resident Activity Tracking Resident Involvement: Resident Care Provided Care Provided: Adult Hospital Medicine (1) Left lower lobe pneumonia Pneumonia type: due to unspecified organism Qualified Code(s): J18.9 - Pneumonia, unspecified organism (4) Hypertension Hypertension type: unspecified Qualified Code(s): I10 - Essential (primary) hypertension
[2024-01-06 08:24] LABS: Basophils # (auto) 0.03 K/uL (0.00-0.20); Basophils % (auto) 0.3 %; Eosinophils # (auto) 0.02 K/uL (0.00-0.50); Eosinophils % (auto) 0.2 %; Hematocrit (blood only) 42.7 % (42.0-52.0); Immature Granulocytes # (auto) 0.07 K/uL (0.01-0.20); Immature Granulocytes % (auto) 0.7 %; Lymphocytes # (auto) 0.71 K/uL (1.20-3.40); Lymphocytes % (auto) 6.9 %; Mean Corpuscular Hemoglobin 31.3 pg (25.0-34.0); Mean Corpuscular Hgb Conc 32.8 g/dL (32.0-36.0); Mean Corpuscular Volume 95.3 fL (80.0-100.0); Mean Platelet Volume 8.6 fL (9.4-12.4); Monocytes # (auto) 0.82 K/uL (0.11-0.59); Neutrophils # (auto) 8.58 K/uL (1.40-6.50); Neutrophils % (auto) 83.9 %; Platelet Count 375 K/uL (130-400); RDW Coefficient of Variation 12.5 % (11.5-14.5); RDW Standard Deviation 43.6 fL (36.4-46.3); Red Blood Count 4.48 M/uL (4.70-6.10); White Blood Count 10.23 K/ul (4.8-10.8)
[2024-01-06 08:42] LABS: Base Excess ABG 6.2 mEq/L (-9-1.8); HCO3 ABG 31 mmol/L (19-24); Oxygen Saturation ABG 96.8 % (90-95); PCO2 ABG 42 mmHg (35-46); PO2 ABG 77 mmHg (80-95); pH ABG 7.47 (7.35-7.45)
[2024-01-06 08:48] LABS: Allen Test Pos (Pos)
[2024-01-06 08:48] LABS: BUN Creatinine Ratio 31.3 (10-20); Calcium 9.2 mg/dl (8.6-10.3); Creatinine Clr Calc Pharmacy 42.3 ml/min; Est GFR (African American) 59.2 ml/min; Est GFR (Non-African American) 51.1 ml/min; Potassium 3.9 mmol/L (3.5-5.1)
--- NOTE | 2024-01-06 09:30 | XRay Report ---
XR chest 1V portable HISTORY: Increased O2 demand, known PNA COMPARISON: Chest CT 01/02/2024. FINDINGS: No pneumothorax. The heart remains mildly enlarged. There are low lung volumes. No pleural effusions. Patchy bilateral airspace opacities and interstitial thickening persists. This is most pro nounced within the left lower lobe. No acute fractures. IMPRESSION: No significant change in the multifocal patchy bilateral airspace opacities likely representing a pne umonia ACT 112: Negative or not required by law. Electronically signed by: Cayden Joshi M.D. 01/06/2024 9:28 AM
[2024-01-06 11:53] LABS: C Reactive Protein 2.46 mg/dl (0-0.5)
--- NOTE | 2024-01-07 07:23 | Hospitalist Progress Note ---
Date of Service January 07, 2024 Assessment & Plan (1) Left lower lobe pneumonia: (2) Acute hypoxic respiratory failure: (3) COVID: (4) Hypertension: (5) Dyslipidemia: Plan (1) Left lower lobe pneumonia: - Multifocal pneumonia, suspect secondary bacterial overgrowth after initial viral insults - Patient presentation likely 2/2 COVID pneumonia impression - Will continue ceftriaxone, but SOB and cough likely due to inflammation and fluid build up, with component of mucous plugging - Continue flutter valve and incentive spirometer - continue Decadron 6mg IV - patient improving, just slowly - encourage pt to prone at times (2) Acute hypoxic respiratory failure: - Patient's SpO2 was 88% on RA on arrival - Patient O2 requirement: HFNC 35 L/min at 60% FiO2 (incrementally lower compared to yesterday) - Improved with Lasix, Decadron, Abx - consider another dose of Lasix for pulmonary congestion if patient's O2 requirements remain high - Continue pulmonary toilet, supportive care. Wean oxygen as possible (3) COVID - Pneumonia likely more viral in etiology based off signs and symptoms - repeat procalcitonin, 0.08 - repeat CRP, 2.5 <-- 7.5 <-- 17.00, improving throughout stay - Condition improving, although slowly - no evidence of DVT in RLE or LLE based on venous Doppler study (4) Hypertension: - Blood pressure, has been < 140/90 - Continue HCTZ - hold losartan with softer blood pressures (5) Dyslipidemia: - Continue atorvastatin Plan Code status: Full code Disposition: Med-Surg VTE PPx: Lovenox 40 mg SQ q24h FENGI: regular diet Admission and Anticipated Discharge Date Admission Date: December 30, 2023 Supervising Physician Co-Signing Physician Notes Attending Physician Supervision Note: I independently interviewed and examined the patient and verified the [place] history and physical, reviewed labs and image studies and agree with findings and care plan noted above. COVID multifocal pneumonia with Acute respiratory failure - Afebrile. Persistently hypoxic needing high flow O2. -Checked procalcitonin 8/19 - normal. CRP down to 2 from 15 on admission. -Continue dexamethasone -Continue high flow O2 and titrate as possible. -Blood and sputum cultures negative. Has been on IV abx since admission - d/c azithromycin. To d/c rocephin in am. -prn lasix doses. HTN - continue HCTZ. Losartan on hold. Lovenox Subjective Today, pt states he is feeling gradually just a small bit better each day and so he notes slight improvement from yesterday. He states he proned a few times yesterday and that he feels that does seem to help, will continue to do that today. Otherwise no palpitations, no N/V, tolerating diet, feeling a bit stronger each day. Some mild chest tightness/pressure w/ coughing, deep breathing. Patient states he's feeling better this morning and continues to feel better each day but his O2sats continue to fall into low 80s when he moves in bed or attempts to get up and use the restroom. Patient is on the high flow O2, 60% FIO2 and 35 L/min, subjectively SOB when getting moved around in his bed. Review of Systems Review of Systems: Per HPI. Constitutional: no fever, no chills, no body aches and no fatigue Eyes: + dry eyes and + itchy eyes; no worsenin g vision Ear, Nose, Mouth, Throat: no ear pain, no nasal congestion, no nasal discharge, no post nasal drip, no facial pain, no sinus pain/pressure and no sore throat Respiratory: + cough, + chest congestion and + dyspne a; no hemoptysis Cardiovascular: + dyspnea at rest and + orthopnea; no ed ludivina and no calf pain Gastrointestinal: no nausea, no vomiting and no diarrhea/loose stools Genitourinary: no dysuria or no urinary frequency Neurologic: no tingling and no numbness Physical Exam Constitutional: WD/WN, vitals as above Eyes: + conjunctival abnormality (redness/conj unctivitis of both eyes, more medially than laterally) Respiratory: + uses accessory muscles, + cough, able to speak in complete sentences and + tachypneic Auscultation: + crackles (heard in bases of both lungs) Cardiovascular: RRR, no murmur, no edema Gastrointestinal (Abdomen): normal bowel sounds, soft, nontender, no hepatosplenomegaly Psychiatric: A+Ox3, euthymic affect Results & Data Results & Data Vital Signs (Past 12 Hours) Vital Signs Temp Pulse Pulse Resp BP Pulse Ox O2 Del Method 01/07/24 07:16 74 20 High Flow Nasal Cannula 08/20/24 07:09 74 20 High Flow Nasal Cannula 01/07/24 03:32 36.5 C 80 18 124/75 93 High Flow Nasal Cannula 01/07/24 03:03 74 18 94 High Flow Nasal Cannula 01/07/24 00:09 74 18 95 High Flow Nasal Cannula 01/06/24 23:21 36.9 C 67 18 118/69 92 Nasal CPAP 01/06/24 22:00 High Flow Nasal Cannula 01/06/24 21:41 82 01/06/24 20:11 84 20 90 High Flow Nasal Cannula 01/06/24 20:11 36.8 C 81 18 126/68 91 Nasal CPAP O2 Flow Rate FiO2 01/07/24 07:16 40 65 01/07/24 07:09 40 65 01/07/24 03:32 01/07/24 03:03 40 65 01/07/24 00:09 40 65 01/06/24 23:21 01/06/24 22:00 40 65 01/06/24 21:41 01/06/24 20:11 40 65 01/06/24 20:11 Resident Activity Tracking Resident Involvement: Resident Care Provided Care Provided: Adult Hospital Medicine (1) Left lower lobe pneumonia Pneumonia type: due to unspecified organism Qualified Code(s): J18.9 - Pneumonia, unspecified organism (4) Hypertension Hypertension type: unspecified Qualified Code(s): I10 - Essential (primary) hypertension
[2024-01-07 08:29] LABS: Basophils # (auto) 0.03 K/uL (0.00-0.20); Basophils % (auto) 0.3 %; Eosinophils # (auto) 0.01 K/uL (0.00-0.50); Eosinophils % (auto) 0.1 %; Hematocrit (blood only) 40.9 % (42.0-52.0); Hemoglobin 13.8 g/dl (14.0-18.0); Immature Granulocytes # (auto) 0.09 K/uL (0.01-0.20); Immature Granulocytes % (auto) 0.9 %; Lymphocytes # (auto) 0.71 K/uL (1.20-3.40); Lymphocytes % (auto) 6.7 %; Mean Corpuscular Hemoglobin 31.4 pg (25.0-34.0); Mean Corpuscular Hgb Conc 33.7 g/dL (32.0-36.0); Mean Platelet Volume 8.6 fL (9.4-12.4); Monocytes # (auto) 0.79 K/uL (0.11-0.59); Monocytes % (auto) 7.5 %; Neutrophils # (auto) 8.92 K/uL (1.40-6.50); Neutrophils % (auto) 84.5 %; Platelet Count 357 K/uL (130-400); RDW Coefficient of Variation 12.4 % (11.5-14.5); RDW Standard Deviation 42.5 fL (36.4-46.3); White Blood Count 10.55 K/ul (4.8-10.8)
[2024-01-07 08:46] LABS: BUN Creatinine Ratio 33.3 (10-20); Calcium 9.2 mg/dl (8.6-10.3); Creatinine Clr Calc Pharmacy 50.2 ml/min; Est GFR (African American) 72.7 ml/min; Est GFR (Non-African American) 62.7 ml/min
--- NOTE | 2024-01-07 16:05 | Ultrasound Report ---
ULTRASOUND BILATERAL LOWER EXTREMITY VENOUS CLINICAL HISTORY: Covid pneumonia. COMPARISON STUDY: Left lower extremity venous ultrasound dated 09/20/2017. TECHNIQUE: Portable real-time, grayscale, and color Doppler sonography of the deep veins of the right and left lower extremity was performed from the inguinal crease to the calf. Compression and augment ation were utilized. FINDINGS: There is no sonographic evidence of deep venous thrombosis identified in the right or left lower extremity. The common femoral, superficial femoral, and popliteal veins are patent and normally compressible bilaterally. The greater saphenous vein and the profunda femoris vein at the junction w ith the common femoral vein are clear in both legs. The visualized calf veins are patent bilaterally. IMPRESSION: There is no sonographic evidence of deep venous thrombosis identified in the right or lef t lower extremity. ACT 112: Negative or not required by law. Electronically signed by: Navid Yuan M.D. 01/07/2024 4:04 PM
[2024-01-08 06:54] LABS: Basophils # (auto) 0.02 K/uL (0.00-0.20); Basophils % (auto) 0.2 %; Eosinophils # (auto) 0.11 K/uL (0.00-0.50); Eosinophils % (auto) 1.1 %; Hematocrit (blood only) 38.3 % (42.0-52.0); Hemoglobin 12.9 g/dl (14.0-18.0); Immature Granulocytes # (auto) 0.07 K/uL (0.01-0.20); Immature Granulocytes % (auto) 0.7 %; Lymphocytes # (auto) 0.65 K/uL (1.20-3.40); Lymphocytes % (auto) 6.2 %; Mean Corpuscular Hemoglobin 31.9 pg (25.0-34.0); Mean Corpuscular Hgb Conc 33.7 g/dL (32.0-36.0); Mean Corpuscular Volume 94.6 fL (80.0-100.0); Mean Platelet Volume 8.4 fL (9.4-12.4); Monocytes # (auto) 0.74 K/uL (0.11-0.59); Monocytes % (auto) 7.1 %; Neutrophils # (auto) 8.85 K/uL (1.40-6.50); Neutrophils % (auto) 84.7 %; Platelet Count 301 K/uL (130-400); RDW Coefficient of Variation 12.3 % (11.5-14.5); RDW Standard Deviation 42.9 fL (36.4-46.3); Red Blood Count 4.05 M/uL (4.70-6.10); White Blood Count 10.44 K/ul (4.8-10.8)
--- NOTE | 2024-01-08 06:58 | Hospitalist Progress Note ---
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), never smoker who presented with (1) Left lower lobe pneumonia: - Multifocal pneumonia, suspect secondary bacterial overgrowth after initial viral insults - Patient presentation likely 2/2 COVID pneumonia impression - WBC, 10.4 <-- 14.5, improved after hospital stay-day 3 - SOB and cough likely due to inflammation and fluid build up, with component of mucous plugging - Continue flutter valve and incentive spirometer; encourage patient to prone at times - Discontinued ceftriaxone after 7 day course - continue Decadron, 6mg, IV, q24 hrs (may need to extend course past 10 days); continue guaifenesin, 1200 mg, PO, q12hrs; - continue Duoneb (Albuterol/Ipratropium), 3 mL, nebulizer, QIDR (2) Acute hypoxic respiratory failure: - Patient's SpO2 was 88% on RA on arrival - Patient O2 requirement: HFNC 35 L/min at 60% FiO2 w/ SpO2, 91 (same as yesterday) - Improved with Lasix, Decadron, Abx - consider another dose of Lasix for pulmonary congestion if patient's O2 requirements remain high - Continue pulmonary toilet, supportive care; Wean oxygen as possible (3) COVID - Pneumonia likely more viral in etiology based off signs and symptoms - repeat procalcitonin, 0.08 - repeat CRP, 2.5 <-- 7.5 <-- 17.00, improving throughout stay - Condition improving, although slowly - no evidence of DVT in RLE or LLE based on venous Doppler study; on Lovenox, 40 mg, subQ, daily (4) Hypertension: - Blood pressure, has been < 140/90 - Continue HCTZ - hold losartan with softer blood pressures (5) Dyslipidemia: - Continue atorvastatin Plan Code status: Full code Disposition: Med-Surg VTE PPx: Lovenox 40 mg SQ q24h FENGI: regular diet Admission and Anticipated Discharge Date Admission Date: December 30, 2023 Supervising Physician Co-Signing Physician Notes Attending Physician Supervision Note: I independently interviewed and examined the patient and verified the [place] history and physical, reviewed labs and image studies and agree with findings and care plan noted above. COVID multifocal pneumonia with Acute respiratory failure - Afebrile. Persistently needing high flow O2. -Procalcitonin 01/05 - normal. CRP down to 2 from 15 on admission. -Continue dexamethasone -Continue high flow O2 and titrate as possible. -Blood and sputum cultures negative. Has been on IV abx since admission - Has completed a course of azithromycin and rocephin. -prn lasix doses. HTN - continue HCTZ. Losartan on hold. Lovenox Subjective Today, pt states he is feeling gradually just a small bit better each day and so he notes slight improvement from yesterday. He states he proned a few times yesterday and that he feels that does seem to help, will continue to do that today. Otherwise no palpitations, no N/V, tolerating diet, feeling a bit stronger each day. Some mild chest tightness/pressure w/ coughing, deep breathing. Patient states he's feeling better this morning and continues to feel better each day but his O2sats continue to fall into low 80s when he moves in bed or attempts to get up and use the restroom. Patient is on the high flow O2, 60% FIO2 and 35 L/min, subjectively SOB when getting moved around in his bed. Review of Systems Review of Systems: Per HPI. Constitutional: no fever, no chills, no body aches and no fatigue Eyes: + dry eyes and + itchy eyes; no worsenin g vision Ear, Nose, Mouth, Throat: no ear pain, no nasal congestion, no nasal discharge, no post nasal drip, no facial pain, no sinus pain/pressure and no sore throat Respiratory: + cough, + chest congestion and + dyspne a; no hemoptysis Cardiovascular: + dyspnea at rest and + orthopnea; no ed ludivina and no calf pain Gastrointestinal: no nausea, no vomiting and no diarrhea/loose stools Genitourinary: no dysuria or no urinary frequency Neurologic: no tingling and no numbness Physical Exam Constitutional: WD/WN, vitals as above Eyes: + conjunctival abnormality (redness/conj unctivitis of both eyes, more medially than laterally) Respiratory: + uses accessory muscles, + cough, able to speak in complete sentences and + tachypneic Auscultation: + crackles (heard in bases of both lungs) Cardiovascular: RRR, no murmur, no edema Gastrointestinal (Abdomen): normal bowel sounds, soft, nontender, no hepatosplenomegaly Psychiatric: A+Ox3, euthymic affect Results & Data Results & Data Vital Signs (Past 12 Hours) Vital Signs Temp Pulse Pulse Resp BP Pulse Ox O2 Del Method 01/08/24 03:48 61 16 94 High Flow Nasal Cannula 01/08/24 02:25 36.6 C 66 18 117/65 88 L High Flow Nasal Cannula 01/07/24 23:35 62 18 95 High Flow Nasal Cannula 01/07/24 22:07 36.6 C 72 20 118/72 90 High Flow Nasal Cannula 01/07/24 22:00 High Flow Nasal Cannula 01/07/24 21:55 72 01/07/24 19:58 36.4 C L 74 18 152/81 H 92 High Flow Nasal Cannula 01/07/24 19:39 77 18 92 High Flow Nasal Cannula O2 Flow Rate FiO2 01/08/24 03:48 35 60 01/08/24 02:25 01/07/24 23:35 35 60 01/07/24 22:07 35 60 01/07/24 22:00 35 60 01/07/24 21:55 01/07/24 19:58 01/07/24 19:39 35 60 Resident Activity Tracking Resident Involvement: Resident Care Provided Care Provided: Adult Hospital Medicine (1) Left lower lobe pneumonia Pneumonia type: due to unspecified organism Qualified Code(s): J18.9 - Pneumonia, unspecified organism (4) Hypertension Hypertension type: unspecified Qualified Code(s): I10 - Essential (primary) hypertension
[2024-01-08 07:25] LABS: BUN Creatinine Ratio 33.3 (10-20); Calcium 8.7 mg/dl (8.6-10.3); Creatinine Clr Calc Pharmacy 52.6 ml/min; Est GFR (African American) 77.9 ml/min; Est GFR (Non-African American) 67.2 ml/min; Potassium 4.2 mmol/L (3.5-5.1)
--- NOTE | 2024-01-09 06:50 | Hospitalist Progress Note ---
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), never smoker who presented with (1) Left lower lobe pneumonia: - Multifocal pneumonia, suspect secondary bacterial overgrowth after initial viral insults - Patient presentation likely 2/2 COVID pneumonia impression - WBC, 10.0 <-- 10.4 <-- 14.5, improved after hospital stay-day 3 - SOB and cough likely due to inflammation and fluid build up, with component of mucous plugging - Continue flutter valve and incentive spirometer; encourage patient to prone at times - Discontinued ceftriaxone after 7 day course - continue Decadron, 6mg, IV, q24 hrs (may need to extend course past 10 days); continue guaifenesin, 1200 mg, PO, q12hrs; - continue Duoneb (Albuterol/Ipratropium), 3 mL, nebulizer, QIDR (2) Acute hypoxic respiratory failure: - Patient's SpO2 was 88% on RA on arrival - Patient O2 requirement: HFNC 35 L/min at 60% FiO2 w/ SpO2, 91 (same as yesterday) - Improved with Lasix, Decadron, Abx - consider another dose of Lasix for pulmonary congestion if patient's O2 requirements remain high - Continue pulmonary toilet, supportive care; Wean oxygen as possible (3) COVID - Pneumonia likely more viral in etiology based off signs and symptoms - repeat procalcitonin, 0.08 - repeat CRP, 2.5 <-- 7.5 <-- 17.00, improving throughout stay - Condition improving, although slowly - no evidence of DVT in RLE or LLE based on venous Doppler study; on Lovenox, 40 mg, subQ, daily (4) Hypertension: - Blood pressure, has been < 140/90 - Continue HCTZ - hold losartan with softer blood pressures (5) Dyslipidemia: - Continue atorvastatin Plan Code status: Full code Disposition: Med-Surg VTE PPx: Lovenox 40 mg SQ q24h FENGI: regular diet Admission and Anticipated Discharge Date Admission Date: December 30, 2023 Supervising Physician Co-Signing Physician Notes Attending Physician Supervision Note: I independently interviewed and examined the patient and verified the [place] history and physical, reviewed labs and image studies and agree with findings and care plan noted above. COVID multifocal pneumonia with Acute respiratory failure - Afebrile. Persistently needing high flow O2. -Procalcitonin 01/05 - normal. CRP down to 2 from 15 on admission. -Continue dexamethasone -Continue high flow O2 and titrate as possible. -Blood and sputum cultures negative. Has been on IV abx since admission - Has completed a course of azithromycin and rocephin. -prn lasix doses. HTN - continue HCTZ. Losartan on hold. Lovenox Subjective Today, pt states he is feeling gradually just a small bit better each day and so he notes slight improvement from yesterday. He states he proned a few times yesterday and that he feels that does seem to help, will continue to do that today. Otherwise no palpitations, no N/V, tolerating diet, feeling a bit stron alejandrina each day. Some mild chest tightness/pressure w/ coughing, deep breathing. Patient states he's feeling better this morning and continues to feel better each day but his O2sats continue to fall into low 80s when he moves in bed or attempts to get up and use the restroom. Patient is on the high flow O2, 60% FIO2 and 35 L/min, subjectively SOB when getting moved around in his bed. Review of Systems Review of Systems: Per HPI. Constitutional: no fever, no chills, no body aches and no fatigue Eyes: + dry eyes and + itchy eyes; no worsenin g vision Ear, Nose, Mouth, Throat: no ear pain, no nasal congestion, no nasal discharge, no post nasal drip, no facial pain, no sinus pain/pressure and no sore throat Respiratory: + cough, + chest congestion and + dyspne a; no hemoptysis Cardiovascular: + dyspnea at rest and + orthopnea; no ed ludivina and no calf pain Gastrointestinal: no nausea, no vomiting and no diarrhea/loose stools Genitourinary: no dysuria or no urinary frequency Neurologic: no tingling and no numbness Physical Exam Constitutional: WD/WN, vitals as above Eyes: + conjunctival abnormality (redness/conj unctivitis of both eyes, more medially than laterally) Respiratory: + uses accessory muscles, + cough, able to speak in complete sentences and + tachypneic Auscultation: + crackles (heard in bases of both lungs) Cardiovascular: RRR, no murmur, no edema Gastrointestinal (Abdomen): normal bowel sounds, soft, nontender, no hepatosplenomegaly Psychiatric: A+Ox3, euthymic affect Results & Data Results & Data Vital Signs (Past 12 Hours) Vital Signs Temp Pulse Resp BP Pulse Ox O2 Del Method O2 Flow Rate 01/09/24 03:50 71 16 92 High Flow Nasal Cannula 35 01/09/24 03:17 36.6 C 72 18 118/53 L 92 High Flow Nasal Cannula 35 01/08/24 23:10 75 17 92 High Flow Nasal Cannula 35 01/08/24 22:56 36.8 C 74 18 124/63 93 High Flow Nasal Cannula 35 01/08/24 21:37 High Flow Nasal Cannula 35 01/08/24 19:24 87 18 92 High Flow Nasal Cannula 35 01/08/24 19:14 36.5 C 88 18 113/70 93 High Flow Nasal Cannula FiO2 01/09/24 03:50 60 01/09/24 03:17 01/08/24 23:10 60 01/08/24 22:56 01/08/24 21:37 60 01/08/24 19:24 60 01/08/24 19:14 Resident Activity Tracking Resident Involvement: Resident Care Provided Care Provided: Adult Hospital Medicine (1) Left lower lobe pneumonia Pneumonia type: due to unspecified organism Qualified Code(s): J18.9 - Pneumonia, unspecified organism (4) Hypertension Hypertension type: unspecified Qualified Code(s): I10 - Essential (primary) hypertension
[2024-01-09 08:05] LABS: Basophils # (auto) 0.01 K/uL (0.00-0.20); Basophils % (auto) 0.1 %; Eosinophils # (auto) 0.04 K/uL (0.00-0.50); Eosinophils % (auto) 0.4 %; Hematocrit (blood only) 36.6 % (42.0-52.0); Hemoglobin 12.5 g/dl (14.0-18.0); Immature Granulocytes # (auto) 0.08 K/uL (0.01-0.20); Immature Granulocytes % (auto) 0.8 %; Lymphocytes # (auto) 0.71 K/uL (1.20-3.40); Lymphocytes % (auto) 7.1 %; Mean Corpuscular Hemoglobin 31.9 pg (25.0-34.0); Mean Corpuscular Hgb Conc 34.2 g/dL (32.0-36.0); Mean Corpuscular Volume 93.4 fL (80.0-100.0); Mean Platelet Volume 8.5 fL (9.4-12.4); Monocytes # (auto) 0.63 K/uL (0.11-0.59); Monocytes % (auto) 6.3 %; Neutrophils # (auto) 8.52 K/uL (1.40-6.50); Neutrophils % (auto) 85.3 %; Platelet Count 324 K/uL (130-400); RDW Coefficient of Variation 12.3 % (11.5-14.5); RDW Standard Deviation 42.2 fL (36.4-46.3); Red Blood Count 3.92 M/uL (4.70-6.10); White Blood Count 9.99 K/ul (4.8-10.8)
[2024-01-09 08:42] LABS: BUN Creatinine Ratio 30.5 (10-20); Calcium 8.6 mg/dl (8.6-10.3); Creatinine Clr Calc Pharmacy 47.3 ml/min; Est GFR (African American) 75.2 ml/min; Est GFR (Non-African American) 64.9 ml/min; Potassium 4.1 mmol/L (3.5-5.1)
--- NOTE | 2024-01-10 07:27 | Hospitalist Progress Note ---
Date of Service January 10, 2024 Assessment & Plan (1) Left lower lobe pneumonia: (2) Acute hypoxic respiratory failure: (3) COVID: (4) Hypertension: (5) Dyslipidemia: Plan Patient is a 83 yo M w/ a PMHx of HTN, HLD, constipation, enlarged prostate, [place] [place] [place] never smoker who presented with the following: (1) Left lower lobe pneumonia: - Multifocal pneumonia, suspect secondary bacterial overgrowth after initial viral insults - Patient presentation likely 2/2 COVID pneumonia impression - WBC, 8.6 <-- 10.4 <-- 14.5, improved after hospital stay-day 3 - SOB and cough likely due to inflammation and fluid build up, with component of mucous plugging - Continue flutter valve and incentive spirometer; encourage patient to prone at times - Discontinued ceftriaxone after 7 day course - continue Decadron, 6mg, IV, q24 hrs (may need to extend course past 10 days); continue guaifenesin, 1200 mg, PO, q12hrs; - continue Duoneb (Albuterol/Ipratropium), 3 mL, nebulizer, QIDR (2) Acute hypoxic respiratory failure: - Patient's SpO2 was 88% on RA on arrival - Patient O2 requirement: HFNC 30 L/min at 59% FiO2 w/ SpO2, 90 (incrementally improved over yesterday) - Improved with Lasix, Decadron, Abx - consider another dose of Lasix for pulmonary congestion if patient's O2 requirements remain high - Continue pulmonary toilet, supportive care; Wean oxygen as possible (3) COVID - Pneumonia likely more viral in etiology based off signs and symptoms - repeat procalcitonin, 0.08 - repeat CRP, 2.5 <-- 7.5 <-- 17.00, improving throughout stay - Condition improving, although slowly - no evidence of DVT in RLE or LLE based on venous Doppler study; on Lovenox, 40 mg, subQ, daily (4) Hypertension: - Blood pressure, has been < 155/90 during stay - Continue HCTZ - hold losartan with softer blood pressures (5) Dyslipidemia: - Continue atorvastatin Plan Code status: Full code Disposition: Med-Surg VTE PPx: Lovenox 40 mg SQ q24h FENGI: regular diet Admission and Anticipated Discharge Date Admission Date: December 30, 2023 Supervising Physician Co-Signing Physician Notes Attending Physician Supervision Note: I independently interviewed and examined the patient and verified the solis history and physical, reviewed labs and image studies and agree with findings and care plan noted above. COVID multifocal pneumonia with Acute respiratory failure - Afebrile. Persistently needing high flow O2 - slow improvement. -Procalcitonin 01/05 - normal. CRP down to 2 from 15 on admission. -Continue dexamethasone -Continue high flow O2 and titrate as possible. -Blood and sputum cultures negative. Has been on IV abx since admission - Has completed a course of azithromycin and rocephin. -prn lasix doses. HTN - continue HCTZ. Losartan on hold. Lovenox Subjective Today, pt states he is feeling gradually just a small bit better each day and so he notes slight improvement from yesterday. He states he proned a few times yesterday and that he feels that does seem to help, will continue to do that today. Otherwise no palpitations, no N/V, tolerating diet, feeling a bit stronger each day. Some mild chest tightness/pressure w/ coughing, deep breathing. Patient states he's feeling better this morning and continues to feel better each day but his O2sats continue to fall into low 80s when he moves in bed or attempts to get up and use the restroom. Patient is on the high flow O2, 60% FIO2 and 35 L/min, subjectively SOB when getting moved around in his bed. Review of Systems Review of Systems: Per HPI. Constitutional: no fever, no chills, no body aches and no fatigue Eyes: + dry eyes and + itchy eyes; no worsenin g vision Ear, Nose, Mouth, Throat: no ear pain, no nasal congestion, no nasal discharge, no post nasal drip, no facial pain, no sinus pain/pressure and no sore throat Respiratory: + cough, + chest congestion and + dyspne a; no hemoptysis Cardiovascular: + dyspnea at rest and + orthopnea; no ed ludivina and no calf pain Gastrointestinal: no nausea, no vomiting and no diarrhea/loose stools Genitourinary: no dysuria or no urinary frequency Neurologic: no tingling and no numbness Physical Exam Constitutional: WD/WN, vitals as above Eyes: + conjunctival abnormality (redness/conj unctivitis of both eyes, more medially than laterally) Respiratory: + uses accessory muscles, + cough and ab le to speak in complete sentences Auscultation: + crackles (heard in bases of both lungs) Cardiovascular: RRR, no murmur, no edema Extremities: normal capillary refill; no calf tenderness Gastrointestinal (Abdomen): normal bowel sounds, soft, nontender, no hepatosplenomegaly Psychiatric: A+Ox3, euthymic affect Results & Data Results & Data Vital Signs (Past 12 Hours) Vital Signs Temp Pulse Pulse Resp BP Pulse Ox O2 Del Method 01/10/24 07:15 75 16 90 High Flow Nasal Cannula 01/10/24 03:30 92 High Flow Nasal Cannula 01/10/24 03:13 36.3 C L 75 18 117/67 88 L High Flow Nasal Cannula 01/10/24 00:08 77 01/09/24 23:59 81 16 89 L High Flow Nasal Cannula 01/09/24 23:09 36.8 C 81 20 121/65 90 High Flow Nasal Cannula 01/09/24 20:10 High Flow Nasal Cannula 01/09/24 19:53 89 14 91 High Flow Nasal Cannula 01/09/24 19:30 36.4 C L 92 H 22 123/85 90 High Flow Nasal Cannula O2 Flow Rate FiO2 01/10/24 07:15 30 60 01/10/24 03:30 30 60 01/10/24 03:13 01/10/24 00:08 01/09/24 23:59 20 55 01/09/24 23:09 30 55 01/09/24 20:10 30 55 01/09/24 19:53 30 55 01/09/24 19:30 30 55 Resident Activity Tracking Resident Involvement: Resident Care Provided Care Provided: Adult Hospital Medicine (1) Left lower lobe pneumonia Pneumonia type: due to unspecified organism Qualified Code(s): J18.9 - Pneumonia, unspecified organism (4) Hypertension Hypertension type: unspecified Qualified Code(s): I10 - Essential (primary) hypertension
[2024-01-10 08:12] LABS: Basophils # (auto) 0.01 K/uL (0.00-0.20); Basophils % (auto) 0.1 %; Eosinophils # (auto) 0.02 K/uL (0.00-0.50); Eosinophils % (auto) 0.2 %; Hematocrit (blood only) 33.6 % (42.0-52.0); Hemoglobin 11.7 g/dl (14.0-18.0); Immature Granulocytes # (auto) 0.08 K/uL (0.01-0.20); Immature Granulocytes % (auto) 0.9 %; Lymphocytes # (auto) 0.71 K/uL (1.20-3.40); Lymphocytes % (auto) 8.3 %; Mean Corpuscular Hemoglobin 31.9 pg (25.0-34.0); Mean Corpuscular Hgb Conc 34.8 g/dL (32.0-36.0); Mean Corpuscular Volume 91.6 fL (80.0-100.0); Mean Platelet Volume 8.7 fL (9.4-12.4); Neutrophils # (auto) 7.15 K/uL (1.40-6.50); Neutrophils % (auto) 83.5 %; Platelet Count 316 K/uL (130-400); RDW Coefficient of Variation 12.3 % (11.5-14.5); RDW Standard Deviation 41.5 fL (36.4-46.3); Red Blood Count 3.67 M/uL (4.70-6.10); White Blood Count 8.57 K/ul (4.8-10.8)
[2024-01-10 08:43] LABS: Calcium 8.4 mg/dl (8.6-10.3); Potassium 4.1 mmol/L (3.5-5.1)
[2024-01-10 08:48] LABS: BUN Creatinine Ratio 30.9 (10-20); Creatinine Clr Calc Pharmacy 45.1 ml/min; Est GFR (African American) 71.1 ml/min; Est GFR (Non-African American) 61.3 ml/min
[2024-01-11 06:39] LABS: Basophils # (auto) 0.01 K/uL (0.00-0.20); Basophils % (auto) 0.1 %; Eosinophils # (auto) 0.02 K/uL (0.00-0.50); Eosinophils % (auto) 0.2 %; Hematocrit (blood only) 32.5 % (42.0-52.0); Hemoglobin 11.1 g/dl (14.0-18.0); Immature Granulocytes # (auto) 0.11 K/uL (0.01-0.20); Immature Granulocytes % (auto) 1.1 %; Lymphocytes # (auto) 0.58 K/uL (1.20-3.40); Mean Corpuscular Hemoglobin 31.1 pg (25.0-34.0); Mean Corpuscular Hgb Conc 34.2 g/dL (32.0-36.0); Mean Platelet Volume 8.5 fL (9.4-12.4); Monocytes # (auto) 0.65 K/uL (0.11-0.59); Monocytes % (auto) 6.7 %; Neutrophils # (auto) 8.34 K/uL (1.40-6.50); Neutrophils % (auto) 85.9 %; Platelet Count 287 K/uL (130-400); RDW Coefficient of Variation 12.2 % (11.5-14.5); RDW Standard Deviation 40.6 fL (36.4-46.3); Red Blood Count 3.57 M/uL (4.70-6.10); White Blood Count 9.71 K/ul (4.8-10.8)
[2024-01-11 06:55] LABS: BUN Creatinine Ratio 30.3 (10-20); Calcium 8.3 mg/dl (8.6-10.3); Creatinine Clr Calc Pharmacy 41.7 ml/min; Est GFR (African American) 64.6 ml/min; Est GFR (Non-African American) 55.8 ml/min
--- NOTE | 2024-01-11 08:18 | Hospitalist Progress Note ---
Date of Service January 11, 2024 Assessment & Plan (1) Left lower lobe pneumonia: (2) Acute hypoxic respiratory failure: (3) COVID: (4) Hypertension: (5) Dyslipidemia: Plan Patient is a 83 yo M w/ a PMHx of HTN, HLD, constipation, enlarged prostate, [place] [facility] [place] never smoker who presented with the following: (1) Left lower lobe pneumonia: - Multifocal pneumonia, suspect secondary bacterial overgrowth after initial viral insults - Patient presentation likely 2/2 COVID pneumonia impression - WBC, 9.7 <-- 8.6 <-- 10.4 <-- 14.5, improved after hospital stay-day 3 - SOB and cough likely due to inflammation and fluid build up, with component of mucous plugging - Continue flutter valve and incentive spirometer; encourage patient to prone at times - Patient completed 7 day course of ceftriaxone - continue Decadron, 6mg, IV, q24 hrs (may need to extend course past 10 days); continue guaifenesin, 1200 mg, PO, q12hrs; - continue Duoneb (Albuterol/Ipratropium), 3 mL, nebulizer, QIDR (2) Acute hypoxic respiratory failure: - Patient's SpO2 was 88% on RA on arrival - Patient O2 requirement: NC 12 L/min, w/ SpO2, 90 (improved over yesterday) - Improved with Lasix, Decadron, Abx - consider another dose of Lasix for pulmonary congestion if patient's O2 requirements remain high - Continue pulmonary toilet, supportive care; Wean oxygen as possible (3) COVID - Pneumonia likely more viral in etiology based off signs and symptoms - repeat procalcitonin, 0.08 - repeat CRP, 2.5 <-- 7.5 <-- 17.00, improving throughout stay - Condition improving, although slowly - no evidence of DVT in RLE or LLE based on venous Doppler study; on Lovenox, 40 mg, subQ, daily (4) Hypertension: - Blood pressure, has been < 155/90 during stay - Continue HCTZ - hold losartan with softer blood pressures (5) Dyslipidemia: - Continue atorvastatin Plan Code status: Full code Disposition: Med-Surg VTE PPx: Lovenox 40 mg SQ q24h FENGI: regular diet Admission and Anticipated Discharge Date Admission Date: December 30, 2023 Supervising Physician Co-Signing Physician Notes Attending Physician Supervision Note: I independently interviewed and examined the patient and verified the solis history and physical, reviewed labs and image studies and agree with findings and care plan noted above. Feeling better and brighter. Starting to get around the room more. No new complaints. Vitals noted, in general he is awake and alert pleasant no distress. HEENT normocephalic atraumatic mucous membranes moist. Breathing unlabored no accessory muscle use still on 12 L whenever I see him, but much brighter and less dyspneic appearing than whenever I last saw him last week. Skin without rashes pallor or icterus. Neuro without focal deficits. COVID multifocal pneumonia with Acute respiratory failure - Afebrile. Persistently needing high flow O2 - But showing slow/steady improvement. -Procalcitonin 01/05 - normal. CRP down to 2 from 15 on admission. -Continue dexamethasone For now, but start to wean - wean/titrate oxygen as possible -Blood and sputum cultures negative. Has completed a course of azithromycin and rocephin for possible secondary bacterial overgrowth pneumonia -prn lasix doses. HTN - continue HCTZ. Losartan on hold. Lovenox Subjective Today, pt states he is feeling gradually just a small bit better each day and so he notes slight improvement from yesterday. He states he continues to use the incentive spirometer and flutter valve and will continue to do that today. Other morrison no palpitations, no N/V, tolerating diet, feeling a bit stronger each day. Some mild chest tightness/pressure w/ coughing, deep breathing. Patient states he's continuing to feel better every morning, now only requiring 12 L O2 by nasal cannula, maintaining O2 Sat in low 90s, and able to walk around the room with assistance. Review of Systems Review of Systems: Per HPI. Constitutional: no fever, no chills, no body aches and no fatigue Eyes: + dry eyes and + itchy eyes; no worsenin g vision Ear, Nose, Mouth, Throat: no ear pain, no nasal congestion, no nasal discharge, no post nasal drip, no facial pain, no sinus pain/pressure and no sore throat Respiratory: + cough, + chest congestion and + dyspne a; no hemoptysis Cardiovascular: + dyspnea at rest and + orthopnea; no ed ludivina and no calf pain Gastrointestinal: no nausea, no vomiting and no diarrhea/loose stools Genitourinary: no dysuria or no urinary frequency Neurologic: no tingling and no numbness Physical Exam Constitutional: WD/WN, vitals as above Eyes: + conjunctival abnormality (redness/conj unctivitis of both eyes, more medially than laterally) Respiratory: + uses accessory muscles, + cough, able to speak in complete sentences and + tachypneic Auscultation: + crackles (heard in bases of both lungs) Cardiovascular: RRR, no murmur, no edema Extremities: normal capillary refill; no calf tenderness Gastrointestinal (Abdomen): normal bowel sounds, soft, nontender, no hepatosplenomegaly Psychiatric: A+Ox3, euthymic affect Results & Data Results & Data Vital Signs (Past 12 Hours) Vital Signs Temp Pulse Pulse Resp BP Pulse Ox O2 Del Method 01/11/24 07:57 93 H 19 127/66 91 High Flow Nasal Cannula 01/11/24 07:28 78 18 94 Nasal Cannula 01/11/24 02:50 36.6 C 80 22 111/55 L 94 High Flow Nasal Cannula 01/10/24 23:00 73 01/10/24 22:30 36.8 C 74 22 134/69 93 High Flow Nasal Cannula 01/10/24 21:00 High Flow Nasal Cannula O2 Flow Rate 01/11/24 07:57 12 01/11/24 07:28 12 01/11/24 02:50 01/10/24 23:00 01/10/24 22:30 01/10/24 21:00 12 (1) Left lower lobe pneumonia Pneumonia type: due to unspecified organism Qualified Code(s): J18.9 - Pneumonia, unspecified organism (4) Hypertension Hypertension type: unspecified Qualified Code(s): I10 - Essential (primary) hypertension
--- NOTE | 2024-01-11 18:41 | Billing Data ---
Date of Service January 11, 2024 Coding Level of Care Code 62290 SUB INP/OBS CARE MIN
[2024-01-11 22:21] LABS: Magnesium 2.2 mg/dl (1.7-2.4)
[2024-01-11] MEDS: MAGNESIUM SULFATE / D5W 1 GM/100 ML BAG IV SCH (22:59)
[2024-01-12 07:13] LABS: Basophils # (auto) 0.01 K/uL (0.00-0.20); Basophils % (auto) 0.1 %; Eosinophils # (auto) 0.05 K/uL (0.00-0.50); Eosinophils % (auto) 0.5 %; Hematocrit (blood only) 33.1 % (42.0-52.0); Hemoglobin 11.1 g/dl (14.0-18.0); Immature Granulocytes # (auto) 0.09 K/uL (0.01-0.20); Immature Granulocytes % (auto) 0.9 %; Lymphocytes # (auto) 0.66 K/uL (1.20-3.40); Lymphocytes % (auto) 6.4 %; Mean Corpuscular Hemoglobin 31.4 pg (25.0-34.0); Mean Corpuscular Hgb Conc 33.5 g/dL (32.0-36.0); Mean Corpuscular Volume 93.5 fL (80.0-100.0); Mean Platelet Volume 8.6 fL (9.4-12.4); Monocytes # (auto) 0.67 K/uL (0.11-0.59); Monocytes % (auto) 6.4 %; Neutrophils # (auto) 8.91 K/uL (1.40-6.50); Neutrophils % (auto) 85.7 %; Platelet Count 285 K/uL (130-400); RDW Coefficient of Variation 12.4 % (11.5-14.5); RDW Standard Deviation 42.6 fL (36.4-46.3); Red Blood Count 3.54 M/uL (4.70-6.10); White Blood Count 10.39 K/ul (4.8-10.8)
[2024-01-12 07:30] LABS: BUN Creatinine Ratio 29.7 (10-20); Calcium 8.4 mg/dl (8.6-10.3); Creatinine Clr Calc Pharmacy 49.1 ml/min; Est GFR (African American) 78.8 ml/min; Potassium 4.2 mmol/L (3.5-5.1)
[2024-01-12] MEDS: dexAMETHasone 4 MG in SYRINGE 0 ML IV SCH (08:21)
--- NOTE | 2024-01-12 08:22 | Hospitalist Progress Note ---
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 [place] [facility] [place] never smoker who presented with the following: (1) Left lower lobe pneumonia: - Multifocal pneumonia, suspect secondary bacterial overgrowth after initial viral insults - Patient presentation likely 2/2 COVID pneumonia impression - WBC, 11.1 <-- 8.6 <-- 10.4 <-- 14.5, improved after hospital stay-day 3 - SOB and cough likely due to inflammation and fluid build up, with component of mucous plugging - Continue flutter valve and incentive spirometer; encourage patient to prone at times - Patient completed 7 day course of ceftriaxone, completed course of azithrom ycin - starting to taper Decadron, 4 mg, IV, q24 hrs now(may need to extend course past 10 days); continue guaifenesin, 1200 mg, PO, q12hrs; - continue Duoneb (Albuterol/Ipratropium), 3 mL, nebulizer, QIDR (2) Acute hypoxic respiratory failure: - Patient's SpO2 was 88% on RA on arrival - Patient O2 requirement: NC 10 L/min, w/ SpO2, 91 (improved over yesterday) - Improved with Lasix, Decadron, Abx - consider another dose of Lasix for pulmonary congestion if patient's O2 requirements remain high - Continue pulmonary toilet, supportive care; Wean oxygen as possible (3) COVID - Pneumonia likely more viral in etiology based off signs and symptoms - repeat procalcitonin, 0.08, (01/05) - repeat CRP, 2.5 <-- 7.5 <-- 17.00, improving throughout stay - Condition improving, although slowly - no evidence of DVT in RLE or LLE based on venous Doppler study; on Lovenox, 40 mg, subQ, daily (4) Hypertension: - Blood pressure, has been < 155/90 during stay - Continue HCTZ - hold losartan with softer blood pressures (5) Dyslipidemia: - Continue atorvastatin Plan Code status: Full code Disposition: Med-Surg VTE PPx: Lovenox 40 mg SQ q24h FENGI: regular diet Admission and Anticipated Discharge Date Admission Date: December 30, 2023 Supervising Physician Co-Signing Physician Notes Attending Physician Supervision Note: continues to slowly feel better. moving around more. less SAMANIEGO. Vitals noted, in general he is awake and alert pleasant no distress. HEENT normocephalic atraumatic mucous membranes moist. Breathing unlabored no accessory muscle use still on 12 L whenever I see him, but much brighter and less dyspneic appearing than whenever I last saw him last week. Skin without rashes pallor or icterus. Neuro without focal deficits. COVID multifocal pneumonia with Acute respiratory failure - Afebrile. Persistently needing high flow O2 - continues to show slow/steady improvement. -Procalcitonin 01/05 - normal. CRP down to 2 from 15 on admission. -Continue dexamethasone For now, but start to wean (dropped to 4mg today) - wean/titrate oxygen as possible -Blood and sputum cultures negative. Has completed a course of azithromycin and rocephin for possible secondary bacterial overgrowth pneumonia -prn lasix doses. HTN - continue HCTZ. Losartan on hold. Lovenox Subjective Today, pt continues to state he is feeling gradually better each day and so he notes slight improvement from yesterday. He states he continues to use the [place] ntive spirometer and flutter valve and will continue to do that today. Otherwise no chest pain or palpitations, no N/V, no headache, tolerating diet, feeling a bit stronger each day. Some mild chest tightness/pressure w/ coughing, deep breathing. Patient states that he had his best sleep in many nights last night, felt relaxed. No longer has any eye itchiness/redness. Patient states he's continuing to feel better every morning, now only requiring 10 L O2 by nasal cannula, maintaining O2 Sat in low 90s, and able to walk around the room with assistance. Review of Systems Review of Systems: Per HPI. Constitutional: no fever, no chills, no body aches and no fatigue Eyes: no dry eyes and no itchy eyes Ear, Nose, Mouth, Throat: no ear pain, no nasal congestion, no nasal discharge, no post nasal drip, no facial pain, no sinus pain/pressure and no sore throat Respiratory: + cough, + chest congestion and + dyspne a; no hemoptysis Cardiovascular: + dyspnea at rest and + orthopnea; no ed ludivina and no calf pain Gastrointestinal: no nausea, no vomiting and no diarrhea/loose stools Genitourinary: no dysuria or no urinary frequency Neurologic: no tingling and no numbness Physical Exam Constitutional: WD/WN, vitals as above Respiratory: + cough, able to speak in complete sente nces and + tachypneic Auscultation: + crackles (heard in base of r. lung posteriorly) Cardiovascular: RRR, no murmur, no edema Extremities: normal capillary refill; no calf tenderness Gastrointestinal (Abdomen): normal bowel sounds, soft, nontender, no hepatosplenomegaly Psychiatric: A+Ox3, euthymic affect Results & Data Results & Data Vital Signs (Past 12 Hours) Vital Signs Temp Pulse Pulse Resp BP Pulse Ox O2 Del Method 01/12/24 08:05 82 18 91 Nasal Cannula 01/12/24 07:43 36.6 C 74 19 129/72 92 High Flow Nasal Cannula 01/12/24 03:55 37.1 C 77 21 127/66 94 High Flow Nasal Cannula 01/11/24 23:40 72 95 High Flow Nasal Cannula 01/11/24 23:06 36.7 C 75 19 112/62 96 High Flow Nasal Cannula 01/11/24 23:00 82 01/11/24 21:30 High Flow Nasal Cannula O2 Flow Rate 01/12/24 08:05 12 01/12/24 07:43 12 01/12/24 03:55 12 01/11/24 23:40 12 01/11/24 23:06 15 01/11/24 23:00 01/11/24 21:30 (1) Left lower lobe pneumonia Pneumonia type: due to unspecified organism Qualified Code(s): J18.9 - Pneumonia, unspecified organism (4) Hypertension Hypertension type: unspecified Qualified Code(s): I10 - Essential (primary) hypertension
[2024-01-12] MEDS ORDERED: DEXAMETHASONE SOD INJ 4 MG/ML VIAL IV SCH (09:00)
--- NOTE | 2024-01-12 17:50 | Billing Data ---
Date of Service January 12, 2024 Coding Level of Care Code 91780 SUB INP/OBS CARE MIN
--- NOTE | 2024-01-13 07:35 | Hospitalist Progress Note ---
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), never smoker who presented with the following: (1) Left lower lobe pneumonia: - Multifocal pneumonia, suspect secondary bacterial overgrowth after initial viral insults - Patient presentation likely 2/2 COVID pneumonia impression - WBC, 14.4 <-- 11.1 <-- 8.6 <-- 10.4 <-- 14.5, improved after hospital stay-day 3 - SOB and cough likely due to inflammation and fluid build up, with component of mucous plugging - Continue flutter valve and incentive spirometer; encourage patient to prone at times - Patient completed 7 day course of ceftriaxone, completed course of azithromycin - starting to taper Decadron, 2 mg, IV, q24 hrs now(may need to extend course past 10 days); continue guaifenesin, 1200 mg, PO, q12hrs; - continue Duoneb (Albuterol/Ipratropium), 3 mL, nebulizer, QIDR - repeat CRP, procalcitonin for AM labs (2) Acute hypoxic respiratory failure: - Patient's SpO2 was 88% on RA on arrival - Patient O2 requirement: NC 6 L/min, w/ SpO2, 91 (improved over yesterday) - Improved with Lasix, Decadron, Abx - consider another dose of Lasix for pulmonary congestion if patient's O2 requirements remain high - Continue pulmonary toilet, supportive care; Wean oxygen as possible (3) COVID - Pneumonia likely more viral in etiology based off signs and symptoms - repeat procalcitonin, 0.08, (01/05) - repeat CRP, 2.5 <-- 7.5 <-- 17.00, improving throughout stay - Condition improving, although slowly - no evidence of DVT in RLE or LLE based on venous Doppler study; on Lovenox, 40 mg, subQ, daily (4) Hypertension: - Blood pressure, has been < 155/90 during stay - Continue HCTZ - hold losartan with softer blood pressures (5) Dyslipidemia: - Continue atorvastatin Plan Code status: Full code Disposition: Med-Surg VTE PPx: Lovenox 40 mg SQ q24h FENGI: regular diet Admission and Anticipated Discharge Date Admission Date: December 30, 2023 Supervising Physician Co-Signing Physician Notes Attending Physician Supervision Note: feeling better overall, down to 6 L. Vitals noted, in general he is awake and alert pleasant no distress. HEENT normocephalic atraumatic mucous membranes moist. Breathing unlabored no accessory muscle use still on 12 L whenever I see him, but much brighter and less dyspneic appearing than whenever I last saw him last week. Skin without rashes pallor or icterus. Neuro without focal deficits. COVID multifocal pneumonia with Acute respiratory failure - Afebrile. oxygen requirements improvingPT/OT eval and treat, started to be able to work towards home versus if he needs a short time at rehab. Discussed with patient he is highly likely to need oxygen at home for at least a little whilebut probably with just a little bit more improvement in his oxygen requirements (to where there is enough for "wiggle room" with outpatient equipment) he will likely be able to go home -Procalcitonin 01/05 - normal. CRP down to 2 from 15 on admission. -wean dexamethasone - wean/titrate oxygen as possible -Blood and sputum cultures negative. Has completed a course of azithromycin and rocephin for possible secondary bacterial overgrowth pneumonia -prn lasix doses. HTN - continue HCTZ. Losartan on hold. Lovenox Subjective Today, pt continues to state he is feeling gradually better each day and so he notes slight improvement from yesterday. He states he continues to use the incentive spirometer and flutter valve and will continue to do that today. Otherwise no chest pain or palpitations, no N/V, no headache, tolerating diet, feeling a bit stronger each day. Some mild chest tightness/pressure w/ coughing, deep breathing. Patient states that he had his best sleep in many nights last night, felt relaxed. No longer has any eye itchiness/redness. Patient states he's continuing to feel better every morning, now only requiring 6 L O2 by nasal cannula, maintaining O2 Sat in low 90s, and able to walk around the room with assistance. Review of Systems Review of Systems: Per HPI. Constitutional: no fever, no chills, no body aches and no fatigue Eyes: no dry eyes and no itchy eyes Ear, Nose, Mouth, Throat: no ear pain, no nasal congestion, no nasal discharge, no post nasal drip, no facial pain, no sinus pain/pressure and no sore throat Respiratory: + cough, + chest congestion and + dyspne a; no hemoptysis Cardiovascular: + dyspnea at rest and + orthopnea; no ed ludivina and no calf pain Gastrointestinal: no nausea, no vomiting and no diarrhea/loose stools Genitourinary: no dysuria or no urinary frequency Neurologic: no tingling and no numbness Physical Exam Constitutional: WD/WN, vitals as above Eyes: + conjunctival abnormality (redness/conj unctivitis of both eyes, more medially than laterally) Respiratory: + uses accessory muscles, + cough, able to speak in complete sentences and + tachypneic Auscultation: + crackles (heard in base of r. lung posteriorly) Cardiovascular: RRR, no murmur, no edema Extremities: normal capillary refill; no calf tenderness Gastrointestinal (Abdomen): normal bowel sounds, soft, nontender, no hepatosplenomegaly Psychiatric: A+Ox3, euthymic affect Results & Data Results & Data Vital Signs (Past 12 Hours) Vital Signs Temp Pulse Pulse Resp BP BP Pulse Ox 01/13/24 07:11 89 17 89 L 01/13/24 06:39 36.6 C 70 18 133/68 93 01/13/24 04:14 96 01/13/24 03:31 36.7 C 63 18 114/63 100 01/12/24 23:09 36.4 C L 63 121/70 95 01/12/24 21:34 77 01/12/24 20:45 O2 Del Method O2 Flow Rate 01/13/24 07:11 Nasal Cannula 6 01/13/24 06:39 High Flow Nasal Cannula 10 01/13/24 04:14 High Flow Nasal Cannula 8 01/13/24 03:31 High Flow Nasal Cannula 10 01/12/24 23:09 High Flow Nasal Cannula 10 01/12/24 21:34 01/12/24 20:45 High Flow Nasal Cannula 10 Resident Activity Tracking Resident Involvement: Resident Care Provided Care Provided: Adult Hospital Medicine (1) Left lower lobe pneumonia Pneumonia type: due to unspecified organism Qualified Code(s): J18.9 - Pneumonia, unspecified organism (4) Hypertension Hypertension type: unspecified Qualified Code(s): I10 - Essential (primary) hypertension
[2024-01-13] MEDS: dexAMETHasone 2 MG in SYRINGE 0 ML IV SCH (09:18)
[2024-01-13 10:23] LABS: Basophils # (auto) 0.02 K/uL (0.00-0.20); Basophils % (auto) 0.1 %; Eosinophils # (auto) 0.09 K/uL (0.00-0.50); Eosinophils % (auto) 0.6 %; Hematocrit (blood only) 39.6 % (42.0-52.0); Hemoglobin 12.9 g/dl (14.0-18.0); Immature Granulocytes # (auto) 0.08 K/uL (0.01-0.20); Immature Granulocytes % (auto) 0.6 %; Lymphocytes % (auto) 6.3 %; Mean Corpuscular Hemoglobin 31.2 pg (25.0-34.0); Mean Corpuscular Hgb Conc 32.6 g/dL (32.0-36.0); Mean Corpuscular Volume 95.9 fL (80.0-100.0); Mean Platelet Volume 8.8 fL (9.4-12.4); Monocytes % (auto) 6.3 %; Neutrophils # (auto) 12.36 K/uL (1.40-6.50); Neutrophils % (auto) 86.1 %; Platelet Count 322 K/uL (130-400); RDW Coefficient of Variation 13.1 % (11.5-14.5); RDW Standard Deviation 45.4 fL (36.4-46.3); Red Blood Count 4.13 M/uL (4.70-6.10); White Blood Count 14.35 K/ul (4.8-10.8)
[2024-01-13 10:30] LABS: Est GFR (African American) 64.6 ml/min; Potassium 3.6 mmol/L (3.5-5.1)
[2024-01-13 10:31] LABS: BUN Creatinine Ratio 23.5 (10-20); Creatinine Clr Calc Pharmacy 41.7 ml/min; Est GFR (Non-African American) 55.8 ml/min
--- NOTE | 2024-01-13 15:23 | Billing Data ---
Date of Service January 13, 2024 Coding Level of Care Code 83756 SUB INP/OBS CARE
--- NOTE | 2024-01-14 06:45 | Hospitalist Progress Note ---
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[facility]), never smoker who presented with the following: (1) Left lower lobe pneumonia: - Multifocal pneumonia, suspect secondary bacterial overgrowth after initial viral insults - Patient presentation likely 2/2 COVID pneumonia impression - WBC, 14.4 <-- 11.1 <-- 8.6 <-- 10.4 <-- 14.5, improved after hospital stay-day 3 - SOB and cough likely due to inflammation and fluid build up, with component of mucous plugging - Continue flutter valve and incentive spirometer; encourage patient to prone at times - Patient completed 7 day course of ceftriaxone, completed course of azithromycin - starting to taper Decadron, 2 mg, IV, q24 hrs now; continue guaifenesin, 1200 mg, PO, q12hrs; - continue Duoneb (Albuterol/Ipratropium), 3 mL, nebulizer, QIDR - repeat CRP, procalcitonin for AM labs (2) Acute hypoxic respiratory failure: - Patient's SpO2 was 88% on RA on arrival - Patient O2 requirement: NC 7 L/min, w/ SpO2, 93 (improved over yesterday) - Improved with Lasix, Decadron, Abx - consider another dose of Lasix for pulmonary congestion if patient's O2 requirements remain high - Continue pulmonary toilet, supportive care; Wean oxygen as possible (3) COVID - Pneumonia likely more viral in etiology based off signs and symptoms - repeat procalcitonin, 0.06 (01/13); 0.08, (01/05) - repeat CRP, less than 0.5 <-- 2.5 <-- 7.5 <-- 17.00, improving throughout stay - Condition improving, although slowly - no evidence of DVT in RLE or LLE based on venous Doppler study; on Lovenox, 40 mg, subQ, daily (4) Hypertension: - Blood pressure, has been < 155/90 during stay - Continue HCTZ - hold losartan with softer blood pressures (5) Dyslipidemia: - Continue atorvastatin Plan Code status: Full code Disposition: Med-Surg VTE PPx: Lovenox 40 mg SQ q24h FENGI: regular diet Admission and Anticipated Discharge Date Admission Date: December 30, 2023 Supervising Physician Co-Signing Physician Notes I personally examined the patient and verified all solis points of history and exam, discussed case, and agree with decision making with Dr Gerard Continues to feel better. Did well with PT. He was even down to 6 L with therapy. Vitals noted, in general he is awake and alert pleasant no distress. HEENT normocephalic atraumatic mucous membranes moist. Breathing unlabored no accessory muscle use good effort. Skin without rashes pallor or icterus. Neuro without focal deficits. COVID multifocal pneumonia with Acute respiratory failure - Afebrile. Given that he was down to 6 L during PT and maintained an O2 sat above 90%, will ask respiratory to check a 6-minute walk test tomorrow with the hopes that he may be close to being able to get home. I would suspect as long as home equipment could support it, it would be safe/reasonable to send him home if he has anything in the region of 4 L at rest and no more than 6 with exertionand it seems like he is getting close -Procalcitonin 8/19 - normal. CRP down to 2 from 15 on admission. -wean dexamethasone slowly - wean/titrate oxygen as possible -Blood and sputum cultures negative. Has completed a course of azithromycin and rocephin for possible secondary bacterial overgrowth pneumonia -prn lasix doses. HTN - continue HCTZ. Losartan on hold. Lovenox Subjective Today, pt continues to state he is feeling gradually better each day and so he notes slight improvement from yesterday. He states he continues to use the incentive spirometer and flutter valve and will continue to do that today; is ok if we decrease the frequency of his Duoneb treatments today. Otherwise no chest pain or palpitations, no N/V, no headache, tolerating diet, feeling a bit stron alejandrina each day. Some mild chest tightness/pressure w/ coughing, deep breathing. Patient continuing to sleep well feels relaxed. No longer has any eye itchiness/redness. Patient states he's continuing to feel better every morning, now only requiring 7 L O2 by nasal cannula, maintaining O2 Sat in low 93, and able to walk around the room with assistance. Later during day patient only required 6 L O2 to maintain O2Sats in low 90s during mild exertion. Review of Systems Review of Systems: Per HPI. Constitutional: no fever, no chills, no body aches and no fatigue Eyes: no dry eyes and no itchy eyes Ear, Nose, Mouth, Throat: no ear pain, no nasal congestion, no nasal discharge, no post nasal drip, no facial pain, no sinus pain/pressure and no sore throat Respiratory: + cough, + chest congestion and + dyspne a; no hemoptysis Cardiovascular: + dyspnea at rest and + orthopnea; no ed ludivina and no calf pain Gastrointestinal: no nausea, no vomiting and no diarrhea/loose stools Genitourinary: no dysuria or no urinary frequency Neurologic: no tingling and no numbness Physical Exam Constitutional: WD/WN, vitals as above Eyes: + conjunctival abnormality (redness/conj unctivitis of both eyes, more medially than laterally) Respiratory: + uses accessory muscles, + cough, able to speak in complete sentences and + tachypneic Auscultation: + crackles (heard in base of r. lung posteriorly) Cardiovascular: RRR, no murmur, no edema Extremities: normal capillary refill; no calf tenderness Gastrointestinal (Abdomen): normal bowel sounds, soft, nontender, no hepatosplenomegaly Psychiatric: A+Ox3, euthymic affect Results & Data Results & Data Vital Signs (Past 12 Hours) Vital Signs Temp Pulse Pulse Resp BP Pulse Ox O2 Del Method 01/14/24 03:28 36.7 C 75 16 117/65 97 Nasal Cannula 01/13/24 22:29 73 01/13/24 22:04 36.7 C 77 18 139/76 94 High Flow Nasal Cannula 01/13/24 20:40 High Flow Nasal Cannula 01/13/24 19:34 84 18 96 Nasal Cannula 01/13/24 19:03 36.4 C L 86 18 128/70 94 High Flow Nasal Cannula O2 Flow Rate 01/14/24 03:28 7 01/13/24 22:29 01/13/24 22:04 01/13/24 20:40 5 01/13/24 19:34 6 01/13/24 19:03 (1) Left lower lobe pneumonia Pneumonia type: due to unspecified organism Qualified Code(s): J18.9 - Pneumonia, unspecified organism (4) Hypertension Hypertension type: unspecified Qualified Code(s): I10 - Essential (primary) hypertension
[2024-01-14 07:43] LABS: Basophils # (auto) 0.02 K/uL (0.00-0.20); Basophils % (auto) 0.2 %; Eosinophils # (auto) 0.21 K/uL (0.00-0.50); Eosinophils % (auto) 2.3 %; Hematocrit (blood only) 35.2 % (42.0-52.0); Immature Granulocytes # (auto) 0.04 K/uL (0.01-0.20); Immature Granulocytes % (auto) 0.4 %; Lymphocytes # (auto) 0.91 K/uL (1.20-3.40); Lymphocytes % (auto) 9.9 %; Mean Corpuscular Hemoglobin 32.3 pg (25.0-34.0); Mean Corpuscular Hgb Conc 34.1 g/dL (32.0-36.0); Mean Corpuscular Volume 94.6 fL (80.0-100.0); Mean Platelet Volume 8.5 fL (9.4-12.4); Monocytes # (auto) 0.79 K/uL (0.11-0.59); Monocytes % (auto) 8.6 %; Neutrophils # (auto) 7.19 K/uL (1.40-6.50); Neutrophils % (auto) 78.6 %; Platelet Count 262 K/uL (130-400); RDW Coefficient of Variation 13.2 % (11.5-14.5); RDW Standard Deviation 44.8 fL (36.4-46.3); Red Blood Count 3.72 M/uL (4.70-6.10); White Blood Count 9.16 K/ul (4.8-10.8)
[2024-01-14 07:48] LABS: Anion Gap 3 (3-11); BUN Creatinine Ratio 24.3 (10-20); Blood Urea Nitrogen 26 mg/dl (6-23); C Reactive Protein < 0.50 mg/dl (0-0.5); Calcium 8.4 mg/dl (8.6-10.3); Carbon Dioxide 29 mmol/L (21-32); Chloride 107 mmol/L (98-107); Creatinine Clr Calc Pharmacy 46.4 ml/min; Est GFR (African American) 73.5 ml/min; Est GFR (Non-African American) 63.4 ml/min; Glucose 93 mg/dl (70-99(Fasting)); Potassium 4.3 mmol/L (3.5-5.1); Sodium 139 mmol/L (136-145)
[2024-01-14] MEDS: FUROSEMIDE 40 MG/4 ML VIAL IV ONE (11:23)
--- NOTE | 2024-01-14 18:02 | Billing Data ---
Date of Service January 14, 2024 Coding Level of Care Code 68017 SUB INP/OBS CARE
[2024-01-14] MEDS: ALBUT/IPRATROP 3MG/0.5MG NEB 3 ML VIAL NEB SCH (20:15)
--- NOTE | 2024-01-15 09:41 | Hospitalist Progress Note ---
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[facility] of neck), never smoker who presented with the following: (1) Left lower lobe pneumonia: - Multifocal pneumonia, suspect secondary bacterial overgrowth after initial viral insults - Patient presentation likely 2/2 COVID pneumonia impression - WBC, 14.4 <-- 11.1 <-- 8.6 <-- 10.4 <-- 14.5, improved after hospital stay-day 3 - SOB and cough likely due to inflammation and fluid build up, with component of mucous plugging - Continue flutter valve and incentive spirometer; encourage patient to prone at times - Patient completed 7 day course of ceftriaxone, completed course of azithromycin - starting to taper Decadron, 2 mg, IV, q24 hrs now; continue guaifenesin, 1200 mg, PO, q12hrs; - continue Duoneb (Albuterol/Ipratropium), 3 mL, nebulizer, QIDR - repeat CRP, procalcitonin for AM labs (2) Acute hypoxic respiratory failure: - Patient's SpO2 was 88% on RA on arrival - Patient O2 requirement: NC 7 L/min, w/ SpO2, 93 (improved over yesterday) - Improved with Lasix, Decadron, Abx - another dose of Lasix given yesterday and today, 40 mg, IV for pulmonary congestion due to exam/O2 requirements - Continue pulmonary toilet, supportive care; Wean oxygen as possible (3) COVID - Pneumonia likely more viral in etiology based off signs and symptoms - repeat procalcitonin, 0.06 (01/13); 0.08, (01/05) - repeat CRP, less than 0.5 <-- 2.5 <-- 7.5 <-- 17.00, improving throughout stay - Condition improving, although slowly - no evidence of DVT in RLE or LLE based on venous Doppler study; on Lovenox, 40 mg, subQ, daily (4) Hypertension: - Blood pressure, has been < 155/90 during stay - Continue HCTZ - hold losartan with softer blood pressures (5) Dyslipidemia: - Continue atorvastatin Plan Code status: Full code Disposition: Med-Surg VTE PPx: Lovenox 40 mg SQ q24h FENGI: regular diet Admission and Anticipated Discharge Date Admission Date: December 30, 2023 Supervising Physician Co-Signing Physician Notes I personally examined the patient and verified all solis points of history and exam, discussed case, and agree with decision making with Dr Gerard feeling well but still requiring too much O2 for home. Vitals noted, in general he is awake and alert pleasant no distress. HEENT normocephalic atraumatic mucous membranes moist. Breathing unlabored no accessory muscle use good effort. Skin without rashes pallor or icterus. Neuro without focal deficits. COVID multifocal pneumonia with Acute respiratory failure - Afebrile. continue to wean O2 as possible/as tolerated - home once in a range that can be set up for home. -wean dexamethasone slowly - wean/titrate oxygen as possible -Blood and sputum cultures negative. Has completed a course of azithromycin and rocephin for possible secondary bacterial overgrowth pneumonia -prn lasix doses. HTN - continue HCTZ. Losartan on hold. Lovenox Subjective Today, pt continues to state he is feeling gradually better each day and so he notes slight improvement from yesterday. He states he continues to use the incentive spirometer and flutter valve and will continue to do that today; was ok with decreasing the frequency of his Duoneb treatments. Otherwise no chest pain or palpitations, no N/V, no headache, tolerating diet, feeling a bit stronger each day. Some mild chest tightness/pressure w/ coughing, deep breathing. Patient is mildly concerned that his O2Sats drop so quickly with any exertion. Patient states he's continuing to feel better every morning, now only requiring 7 L O2 by nasal cannula, maintaining O2 Sat in low 93, and able to walk around the room with assistance. Later during day patient only required 6 L O2 to maintain O2Sats in low 90s during mild exertion. Review of Systems Review of Systems: Per HPI. Constitutional: no fever, no chills, no body aches and no fatigue Eyes: no dry eyes and no itchy eyes Ear, Nose, Mouth, Throat: no ear pain, no nasal congestion, no nasal discharge, no post nasal drip, no facial pain, no sinus pain/pressure and no sore throat Respiratory: + cough, + chest congestion and + dyspne a; no hemoptysis Cardiovascular: + dyspnea at rest and + orthopnea; no ed ludivina and no calf pain Gastrointestinal: no nausea, no vomiting and no diarrhea/loose stools Genitourinary: no dysuria or no urinary frequency Neurologic: no tingling and no numbness Physical Exam Constitutional: WD/WN, vitals as above Eyes: + conjunctival abnormality (redness/conj unctivitis of both eyes, more medially than laterally) Respiratory: + uses accessory muscles, + cough, able to speak in complete sentences and + tachypneic Auscultation: + crackles (heard in bottoms lungs posteriorly b/l) Cardiovascular: RRR, no murmur, no edema Extremities: normal capillary refill; no calf tenderness Gastrointestinal (Abdomen): normal bowel sounds, soft, nontender, no hepatosplenomegaly Psychiatric: A+Ox3, euthymic affect Results & Data Results & Data Vital Signs (Past 12 Hours) Vital Signs Temp Pulse Pulse Resp BP Pulse Ox O2 Del Method 01/15/24 08:37 36.3 C L 100 H 21 124/74 90 High Flow Nasal Cannula 01/15/24 07:50 High Flow Nasal Cannula 01/15/24 07:32 19 84 L Nasal Cannula 01/15/24 02:39 36.7 C 66 18 97 High Flow Nasal Cannula 01/14/24 23:00 79 01/14/24 22:51 36.7 C 81 18 135/71 96 High Flow Nasal Cannula O2 Flow Rate 01/15/24 08:37 8 01/15/24 07:50 7 01/15/24 07:32 6 01/15/24 02:39 7 01/14/24 23:00 01/14/24 22:51 7 (1) Left lower lobe pneumonia Pneumonia type: due to unspecified organism Qualified Code(s): J18.9 - Pneumonia, unspecified organism (4) Hypertension Hypertension type: unspecified Qualified Code(s): I10 - Essential (primary) hypertension
[2024-01-15] MEDS: FUROSEMIDE 40 MG/4 ML VIAL IV ONE (13:55)
--- NOTE | 2024-01-15 16:59 | Billing Data ---
Date of Service January 15, 2024 Coding Level of Care Code 52910 SUB INP/OBS CARE MIN
[2024-01-16 07:06] LABS: Basophils # (auto) 0.01 K/uL (0.00-0.20); Basophils % (auto) 0.1 %; Eosinophils # (auto) 0.23 K/uL (0.00-0.50); Hematocrit (blood only) 33.9 % (42.0-52.0); Hemoglobin 11.6 g/dl (14.0-18.0); Immature Granulocytes # (auto) 0.05 K/uL (0.01-0.20); Immature Granulocytes % (auto) 0.6 %; Lymphocytes # (auto) 0.85 K/uL (1.20-3.40); Lymphocytes % (auto) 10.9 %; Mean Corpuscular Hemoglobin 31.6 pg (25.0-34.0); Mean Corpuscular Hgb Conc 34.2 g/dL (32.0-36.0); Mean Corpuscular Volume 92.4 fL (80.0-100.0); Mean Platelet Volume 8.8 fL (9.4-12.4); Monocytes # (auto) 0.65 K/uL (0.11-0.59); Monocytes % (auto) 8.4 %; Neutrophils # (auto) 5.98 K/uL (1.40-6.50); Platelet Count 232 K/uL (130-400); RDW Coefficient of Variation 13.2 % (11.5-14.5); Red Blood Count 3.67 M/uL (4.70-6.10); White Blood Count 7.77 K/ul (4.8-10.8)
[2024-01-16 07:17] LABS: BUN Creatinine Ratio 29.5 (10-20); Calcium 8.5 mg/dl (8.6-10.3); Creatinine Clr Calc Pharmacy 47.3 ml/min; Est GFR (African American) 75.2 ml/min; Est GFR (Non-African American) 64.9 ml/min; Potassium 3.7 mmol/L (3.5-5.1)
--- NOTE | 2024-01-16 07:29 | Hospitalist Progress Note ---
Date of Service January 16, 2024 Assessment & Plan (1) Left lower lobe pneumonia: (2) Acute hypoxic respiratory failure: (3) COVID: (4) Hypertension: (5) Dyslipidemia: Plan Patient is a 83 yo M w/ a PMHx of HTN, HLD, constipation, enlarged prostate, SCC-neck (Hx of [facility] [place] [facility] [place]), never smoker who presented with the following: (1) Left lower lobe pneumonia: - Multifocal pneumonia, suspect secondary bacterial overgrowth after initial viral insults - Patient presentation likely 2/2 COVID pneumonia impression - WBC, 7.8 <-- 14.4 <-- 11.1 <-- 10.4 <-- 14.5, improved after hospital stay-day 3 - SOB and cough likely due to inflammation and fluid build up, with component of mucous plugging - Continue flutter valve and incentive spirometer; encourage patient to prone at times - Patient completed 7 day course of ceftriaxone, completed course of azithromycin - starting to taper Decadron, 2 mg, IV, q24 hrs now; continue guaifenesin, 1200 mg, PO, q12hrs; - continue Duoneb (Albuterol/Ipratropium), 3 mL, nebulizer, QIDR (2) Acute hypoxic respiratory failure: - Patient's SpO2 was 88% on RA on arrival - Patient O2 requirement: NC 7 L/min, w/ SpO2, 93 (improved over yesterday) - Improved with Lasix, Decadron, Abx - 3rd day in a row --> Lasix, 40 mg, IV for pulmonary congestion due to physical exam findings/O2 requirements - Continue pulmonary toilet, supportive care; Wean oxygen as possible (3) COVID - Pneumonia likely more viral in etiology based off signs and symptoms - repeat procalcitonin, 0.06 (01/13); 0.08, (01/05) - repeat CRP, less than 0.5 <-- 2.5 <-- 7.5 <-- 17.00, improving throughout stay - Condition improving, although slowly - no evidence of DVT in RLE or LLE based on venous Doppler study; on Lovenox, 40 mg, subQ, daily (4) Hypertension: - Blood pressure, has been < 155/90 during stay - Continue HCTZ - hold losartan with softer blood pressures (5) Dyslipidemia: - Continue atorvastatin Plan Code status: Full code Disposition: Med-Surg VTE PPx: Lovenox 40 mg SQ q24h FENGI: regular diet Admission and Anticipated Discharge Date Admission Date: December 30, 2023 Supervising Physician Co-Signing Physician Notes I personally examined the patient and verified all solis points of history and exam, discussed case, and agree with decision making with Dr Gerard feeling well but still requiring too much O2 for home. walking well no SAMANIEGO Vitals noted, in general he is awake and alert pleasant no distress. HEENT normocephalic atraumatic mucous membranes moist. Breathing unlabored no accessory muscle use good effort. Skin without rashes pallor or icterus. Neuro without focal deficits. COVID multifocal pneumonia with Acute respiratory failure - Afebrile. continue to wean O2 as possible/as tolerated - home once in a range that can be set up for home. -wean dexamethasone slowly - wean/titrate oxygen as possible -Blood and sputum cultures negative. Has completed a course of azithromycin and rocephin for possible secondary bacterial overgrowth pneumonia -prn lasix doses. -stable for medical HTN - continue HCTZ. Losartan on hold. Lovenox Subjective Today, pt continues to state he is feeling gradually better each day and so he notes slight improvement from yesterday. He states he continues to use the incentive spirometer and flutter valve and will continue to do that today; was ok with decreasing the frequency of his Duoneb treatments. Otherwise no chest pain or palpitations, no N/V, no headache, tolerating diet, feeling a bit stronger each day. Some mild chest tightness/pressure w/ coughing, deep breathing. Patient is mildly concerned that his O2Sats drop so quickly with any exertion. Patient states he's continuing to feel better every morning, now only requiring 7 L O2 by nasal cannula, maintaining O2 Sat in low 93, and able to walk around the room with assistance. Review of Systems 2 Review of Systems: Per HPI. Constitutional: no fever, no chills, no body aches and no fatigue Eyes: no dry eyes and no itchy eyes Ear, Nose, Mouth, Throat: no ear pain, no nasal congestion, no nasal discharge, no post nasal drip, no facial pain, no sinus pain/pressure and no sore throat Respiratory: + cough, + chest congestion and + dyspne a; no hemoptysis Cardiovascular: + dyspnea at rest and + orthopnea; no ed ludivina and no calf pain Gastrointestinal: no nausea, no vomiting and no diarrhea/loose stools Genitourinary: no dysuria or no urinary frequency Neurologic: no tingling and no numbness Physical Exam Constitutional: WD/WN, vitals as above Eyes: + conjunctival abnormality (redness/conj unctivitis of both eyes, more medially than laterally) Respiratory: + uses accessory muscles, + cough, able to speak in complete sentences and + tachypneic Auscultation: + crackles (heard in bottoms lungs posteriorly b/l) Cardiovascular: RRR, no murmur, no edema Extremities: normal capillary refill; no calf tenderness Gastrointestinal (Abdomen): normal bowel sounds, soft, nontender, no hepatosplenomegaly Psychiatric: A+Ox3, euthymic affect Results & Data Results & Data Vital Signs (Past 12 Hours) Vital Signs Temp Pulse Pulse Resp BP Pulse Ox O2 Del Method 01/16/24 07:14 76 01/16/24 07:11 87 20 95 Nasal Cannula 01/16/24 03:02 36.6 C 78 18 130/70 94 High Flow Nasal Cannula 01/16/24 00:49 Nasal Cannula 01/15/24 23:22 36.8 C 95 H 20 112/74 93 High Flow Nasal Cannula 01/15/24 23:00 71 01/15/24 20:38 36.9 C 101 H 18 112/73 92 High Flow Nasal Cannula 01/15/24 19:41 86 18 96 Nasal Cannula O2 Flow Rate 01/16/24 07:14 01/16/24 07:11 7 01/16/24 03:02 7 01/16/24 00:49 7 01/15/24 23:22 7 01/15/24 23:00 01/15/24 20:38 7 01/15/24 19:41 7 (1) Left lower lobe pneumonia Pneumonia type: due to unspecified organism Qualified Code(s): J18.9 - Pneumonia, unspecified organism (4) Hypertension Hypertension type: unspecified Qualified Code(s): I10 - Essential (primary) hypertension
[2024-01-16] MEDS: FUROSEMIDE 40 MG/4 ML VIAL IV ONE (18:37)
--- NOTE | 2024-01-16 18:41 | Billing Data ---
Date of Service January 16, 2024 Coding Level of Care Code 09577 SUB INP/OBS CARE
--- NOTE | 2024-01-17 07:32 | Hospitalist Progress Note ---
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[place]), never smoker who presented with the following: (1) Left lower lobe pneumonia: - Multifocal pneumonia, suspect secondary bacterial overgrowth after initial viral insults - Patient presentation likely 2/2 COVID pneumonia impression - WBC, 7.8 <-- 14.4 <-- 11.1 <-- 10.4 <-- 14.5, improved after hospital stay-day 3 - SOB and cough likely due to inflammation and fluid build up, with component of mucous plugging - Continue flutter valve and incentive spirometer; encourage patient to prone at times - Patient completed 7 day course of ceftriaxone, completed course of azithromycin - starting to taper Decadron, 2 mg, IV, q24 hrs now; continue guaifenesin, 1200 mg, PO, q12hrs; - continue Duoneb (Albuterol/Ipratropium), 3 mL, nebulizer, QIDR (2) Acute hypoxic respiratory failure: - Patient's SpO2 was 88% on RA on arrival - Patient O2 requirement: NC 5 L/min, w/ SpO2, 92 (improved over yesterday) - Improved with Lasix, Decadron, Abx - 4th day in a row --> Lasix, 40 mg, IV for pulmonary congestion due to physical exam findings/O2 requirements - Continue pulmonary toilet, supportive care; Wean oxygen as possible (3) COVID - Pneumonia likely more viral in etiology based off signs and symptoms - repeat procalcitonin, 0.06 (01/13); 0.08, (01/05) - repeat CRP, less than 0.5 <-- 2.5 <-- 7.5 <-- 17.00, improving throughout stay - Condition improving, although slowly - no evidence of DVT in RLE or LLE based on venous Doppler study; on Lovenox, 40 mg, subQ, daily (4) Hypertension: - Blood pressure, has been < 155/90 during stay - Continue HCTZ - hold losartan with softer blood pressures (5) Dyslipidemia: - Continue atorvastatin Plan Code status: Full code Disposition: Med-Surg VTE PPx: Lovenox 40 mg SQ q24h FENGI: regular diet Admission and Anticipated Discharge Date Admission Date: December 30, 2023 Supervising Physician Co-Signing Physician Notes I personally examined the patient and verified all solis points of history and exam, discussed case, and agree with decision making with Dr Gerard feeling well desaturating with walking but recovers sats quickly. Vitals noted, in general he is awake and alert pleasant no distress. HEENT normocephalic atraumatic mucous membranes moist. Breathing unlabored no accessory muscle use good effort. Skin without rashes pallor or icterus. Neuro without focal deficits. COVID multifocal pneumonia with Acute respiratory failure - Afebrile. continue to wean O2 as possible/as tolerated - home once in a range that can be set up for home. -wean dexamethasone slowly - wean/titrate oxygen as possible -Blood and sputum cultures negative. Has completed a course of azithromycin and rocephin for possible secondary bacterial overgrowth pneumonia -prn lasix doses. -hopefully home soon HTN - continue HCTZ. Losartan on hold. Lovenox Subjective Today, pt continues to state he is feeling gradually better each day and so he notes slight improvement from yesterday. He states he continues to use the incentive spirometer and flutter valve and will continue to do that today; was ok with decreasing the frequency of his Duoneb treatments. Otherwise no chest pain or palpitations, no N/V, no headache, tolerating diet, feeling a bit stronger each day. Some mild chest tightness/pressure w/ coughing, deep breathing. Patient is mildly concerned that his O2Sats drop so quickly with any exertion. Patient states he's continuing to feel better every morning, now only requiring 5 L O2 by nasal cannula, maintaining O2 Sat in low 92, and able to walk around the room with assistance, although he continues to have O2Sats in low-mid 80s with ambulating in the room. Review of Systems Review of Systems: Per HPI. Constitutional: no fever, no chills, no body aches and no fatigue Eyes: no dry eyes and no itchy eyes Ear, Nose, Mouth, Throat: no ear pain, no nasal congestion, no nasal discharge, no post nasal drip, no facial pain, no sinus pain/pressure and no sore throat Respiratory: + cough, + chest congestion and + dyspne a; no hemoptysis Cardiovascular: + dyspnea at rest and + orthopnea; no ed ludivina and no calf pain Gastrointestinal: no nausea, no vomiting and no diarrhea/loose stools Genitourinary: no dysuria or no urinary frequency Neurologic: no tingling and no numbness Physical Exam Constitutional: WD/WN, vitals as above Eyes: + conjunctival abnormality (redness/conj unctivitis of both eyes, more medially than laterally) Respiratory: + uses accessory muscles, + cough, able to speak in complete sentences and + tachypneic Auscultation: + crackles (heard in bottoms lungs posteriorly b/l) Cardiovascular: RRR, no murmur, no edema Extremities: normal capillary refill; no calf tenderness Gastrointestinal (Abdomen): normal bowel sounds, soft, nontender, no hepatosplenomegaly Psychiatric: A+Ox3, euthymic affect Results & Data Results & Data Vital Signs (Past 12 Hours) Vital Signs Temp Pulse Resp BP Pulse Ox O2 Del Method O2 Flow Rate 01/17/24 07:14 82 19 92 Nasal Cannula 5 01/16/24 22:05 Nasal Cannula 5 01/16/24 22:00 36.3 C L 89 20 154/95 H 95 Nasal Cannula 01/16/24 19:59 High Flow Nasal Cannula 5 01/16/24 19:32 87 19 94 Nasal Cannula 7 (1) Left lower lobe pneumonia Pneumonia type: due to unspecified organism Qualified Code(s): J18.9 - Pneumonia, unspecified organism (4) Hypertension Hypertension type: unspecified Qualified Code(s): I10 - Essential (primary) hypertension
--- NOTE | 2024-01-17 15:00 | Billing Data ---
Date of Service January 17, 2024 Coding Level of Care Code 32641 SUB INP/OBS CARE
[2024-01-17] MEDS: FUROSEMIDE 40 MG/4 ML VIAL IV ONE (15:01)
[2024-01-18 06:40] LABS: Basophils # (auto) 0.02 K/uL (0.00-0.20); Basophils % (auto) 0.3 %; Eosinophils # (auto) 0.21 K/uL (0.00-0.50); Hematocrit (blood only) 33.3 % (42.0-52.0); Hemoglobin 11.3 g/dl (14.0-18.0); Immature Granulocytes # (auto) 0.02 K/uL (0.01-0.20); Immature Granulocytes % (auto) 0.3 %; Lymphocytes # (auto) 0.83 K/uL (1.20-3.40); Mean Corpuscular Hemoglobin 31.9 pg (25.0-34.0); Mean Corpuscular Hgb Conc 33.9 g/dL (32.0-36.0); Mean Corpuscular Volume 94.1 fL (80.0-100.0); Mean Platelet Volume 8.4 fL (9.4-12.4); Monocytes # (auto) 0.66 K/uL (0.11-0.59); Monocytes % (auto) 9.6 %; Neutrophils # (auto) 5.17 K/uL (1.40-6.50); Neutrophils % (auto) 74.8 %; Platelet Count 198 K/uL (130-400); RDW Coefficient of Variation 13.2 % (11.5-14.5); RDW Standard Deviation 45.2 fL (36.4-46.3); Red Blood Count 3.54 M/uL (4.70-6.10); White Blood Count 6.91 K/ul (4.8-10.8)
[2024-01-18 06:58] LABS: Calcium 8.2 mg/dl (8.6-10.3); Creatinine Clr Calc Pharmacy 42.8 ml/min; Est GFR (African American) 66.7 ml/min; Est GFR (Non-African American) 57.5 ml/min; Potassium 3.6 mmol/L (3.5-5.1)
[2024-01-18 15:19] VITALS: PULSE 91; RESP 18; TEMP 97.9; O2SAT 94
--- NOTE | 2024-01-18 15:32 | Discharge Summary ---
Date of Service January 18, 2024 Admission HPI Per Admitting Provider Ion is a pleasant 83-year-old male with PMH of dyslipidemia, HTN, and enlarged prostate. He presented on 12/29 for productive cough, dyspnea on exertion, and low-grade fevers x 1 week. Patient reports he is experiencing SOB with exertion, but not at rest. He is not on supple oxygen at home. He has been taking Mucinex and cough drops for his productive cough. He does have a history of COVID infection in 2019. He has had vaccination against COVID, but not boosters. Per home parameter, he has been running low-grade fevers around 99 F. He denies being around anybody sick recently, and reports he mainly only goes out when he is going to [employer], and [employer]. He denies smoking, tobacco use, and alcohol use. Patient's SpO2 was 95% on 3L NC; vitals otherwise stable at time of admission. ED course: Azithromycin 500 mg IV Cefepime 2000 mg IV Decadron 10 mg IV Acetaminophen 1000 mg IV NSS 1000 mL IV ROS: Patient endorses intermittent low-grade fevers (at 99F), SAMANIEGO, and productive cough. Patient denies chills, night-sweats, dizziness, lightheadedness, ROGERS, congestion, chest pain, SOB at rest, pleuritic CP, abdominal pain, or N/V/D. Admission Exam Per Admitting Provider General: no acute distress; pleasant affect; non-toxic appearing; well- nourished; cooperative; SpO2 96% on 3L NC HEENT: normocephalic, atraumatic; no scleral icterus; PERRLAt; vision and hearing grossly intact Neck: supple; no lymphadenopathy; trachea midline Skin: warm, dry without signs of tenting; no cyanosis; no rashes, bruising, lesions, or erythema noted CV: chest wall NTP; RRR; S1/S2 normal; no murmurs/rubs/gallops; pulses intact and symmetric at radial, DP, and PT Lungs: Mild respiratory distress; symmetrical chest wall expansion; bibasilar crackles auscultated in the lower lung villan[place]va bilaterally; deep breaths exacerbates coughing ABD: Soft, NTP; BS present; no rebound/guarding; no distention MSK: no tics or fasciculations; no edema noted in the LEs b/l, nonerythematous Neuro: A&Ox3; normal mood and affect; fluent speech; no focal deficits; sensation grossly intact in the LEs b/l Trialed patient on room air and patient's oxygen dropped to 90% Principal Diagnosis LLL pneumonia secondary to bacterial growth after COVID infection Discharge Exam GENERAL: AAOx3, afebrile, sitting on bedside chair, NAD CV: RRR, no r/m/g PULM: CTA b/l, normal respiratory effort, no respiratory distress, NC @ 5 lpm GI: soft, nontender EXTR: no swelling noted on b/l LE Discharge Data Allergies Allergy/AdvReac Type Severity Reaction Status Date / Time Iodinated Contrast Media Allergy Unknown HIVES--CONTRAST Verified 04/30/23 08:43 DYE lisinopril Allergy Unknown Verified 04/30/23 08:43 Consultations 12/30/23 20:06 ED Decision to Admit Stat Ordered Studies 01/02/24 07:39 CT chest diagnostic wo con Stat 01/07/24 11:13 US venous doppler LE Routine Hospital Course (1) Left lower lobe pneumonia: (2) Acute hypoxic respiratory failure: (3) COVID: (4) Hypertension: (5) Dyslipidemia: Plan Patient is a 83 yo M w/ a PMHx of HTN, HLD, constipation, enlarged prostate, 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 Left lower lobe pneumonia // COVID -- Resolved - Multifocal pneumonia, suspect secondary bacterial overgrowth after initial viral insults (COVID) - No leukocytosis and VSS - s/p Ceftriaxone x7 days and Azithromycin - Continue flutter valve and incentive spirometer; encourage patient to prone at times - Patient completed 7 day course of ceftriaxone, completed course of azithromycin - Continue guaifenesin, 1200 mg, PO, q12hrs; Acute hypoxic respiratory failure -- Resolved - Patient's SpO2 was 88% on RA on arrival - Patient O2 requirement: NC 5 L/min, w/ SpO2, 92 - 2-step performed today and patient with oxygen requirement of 4 lpm at rest and 6 lpm during exertion - Coordinated with CM to provide patient w/ home oxygen - F/u w/ PCP to reassess oxygenation and respiratory status Hypertension -- Chronic, stable - Blood pressure stable during admission - Continue HCTZ - hold losartan with softer blood pressures Dyslipidemia -- Chronic, stable - Continue atorvastatin Patient found stable for discharge with home oxygen today. Total Time Total Time Spent Total Time Spent (In Minutes): As per attending attestation. Discharge Plan Discharge Items Patient Disposition: Home - Self-Care Reason For Visit: PNE, COVID Discharge Diagnosis: LLL pneumonia Activity: Per Instructions section Non-emergency contact: Primary Care Provider Call non-emergency contact if: your symptoms worsen Follow-up/Referrals: Jaocb Godfrey DO [Primary Care Provider] - Diet: Regular Addtl Attending Provider Instructions: You are admitted to the hospital due to pneumonia over the came as a consequence to her initial COVID infection. We treated it with intravenous antibiotics as well as steroids and other medications for symptom control. Because her oxygen levels were falling to the 80s (normal range above 90), we had to give you some oxygen. The pain. As time passed her respirations became better and infection seem to be resolving, however you still needed some oxygen because her oxygen levels kept falling and you are off of it. Therefore, we will be discharging with oxygen to use at home until your lungs fully heal when you are able to breathe and maintain adequate oxygen levels without the need of a nasal cannula. We strongly encourage that you follow-up with your primary care provider to make sure that your respiratory status continues to improve. A discharge summary will be sent to your primary care physician to ensure continuity of care. Please bring this discharge summary with you to your next office appointment so that your provider can review it at that time. Follow-up appointments: Make a follow-up appointment with your PCP within the next week. It is very important that you follow up with them shortly after discharge from the hospital. Keep all your follow-up appointments as already scheduled. If you cannot make an appointment, notify your provider. Medications: Your medication list has been reviewed and reconciled upon discharge to ensure accuracy and continuity of care. An updated list of all your medications is included with your hospital discharge paperwork. Please review this list closely, and make note of any changes. Take your medications as instructed; do not skip a dose of your medicines. Make sure all of your doctors know every medicine you are taking (including kope-hzl-umymavg medicines, vitamins, and supplements). Call your primary care provider before taking any new medicines (including over- the-counter medicines, vitamins, and supplements), because some of these may interact with your current medications, or may make your symptoms worse. Tell your primary care provider if you cannot afford your medications. CONTACT YOUR PRIMARY CARE PROVIDER if you experience any of the following: Worsening of symptoms Fever, chills, or fatigue Difficulty following your treatment plan, or difficulty taking medications CALL 911 OR GO TO THE EMERGENCY DEPARTMENT if you experience any of the following: Sudden, severe abdominal pain or nausea/vomiting Severe chest pain, or chest pain that radiates (moves) to your jaw or arm Sudden, severe shortness of breath or difficulty breathing Thank you for allowing us to participate in your care. Pending Studies at Discharge: No Stand-Alone Forms: My [facility], Smoking Cessation Medications and DC Order Prescriptions: Continued losartan [Cozaar] 100 mg tablet 100 mg PO DAILY Qty: 90 3RF atorvastatin [Lipitor] 10 mg tablet 10 mg PO DAILY Qty: 90 3RF hydrochlorothiazide 12.5 mg tablet 12.5 mg PO DAILY Qty: 90 3RF acetaminophen [Tylenol Extra Strength] 500 mg Tablet 1,000 mg PO Q6H PRN (Reason: Pain) Discharge Orders: Discharge Order (Routine); Ordered 01/18/24 Ordered By: Marina Barkley Admission Data Admit Date/Time: 12/30/23 20:40 Attending Provider: Berhane Araya Admit Provider: Cayden Tatum Primary Care Provider: Jacob Godfrey Other Providers: Berhane Araya; Marc Lozano Resident Activity Tracking Resident Involvement: Resident Care Provided Care Provided: Adult Hospital Medicine
[2024-01-18 18:01] VITALS: BP 129/72
== END 2024-01-18 18:48 | disposition home or self-care (01) | DRG 177 ==
LOC: ED 18:15 → SUATTDRO 20:40 → 2N 20:40 → 2S 01-03 04:37 → 3N 01-16 21:36